=== PATIENT | female | born 1965 | race Caucasian/White ===

== ENCOUNTER 2018-01-26 15:18 | Inpatient (IN) | payer OTHER ==
[~2018-01-26] VITALS: Ht 157.5 cm; Wt 74.1 kg
[~2018-01-26 15:18] MED LIST: ALBU90OI INH; BUPR100 PO; MYCO250 PO; Multivitamin1 EAC1 PO; OMEPRAZOLE MAGN20 MG PO; PRED10 PO; Sulfamethoxazo1 EAC4; Sulfamethoxazo1 EAC4 PO
[2018-01-26 17:01] LABS: BASOPHILS ABSOLUTE AUTO 0.04 K/mm3 (0.00-0.23); BASOPHILS PERCENT AUTO 0 % (0-2); EOSINOPHILS ABSOLUTE AUTO 0.05 K/mm3 (0.00-0.68); EOSINOPHILS PERCENT AUTO 1 % (0-6); Hematocrit 37.3 % (33.0-51.0); Hemoglobin 11.9 g/dL (11.5-16.0); IMMATURE GRAN ABSOLUTE AUTO 0.06 K/mm3 (0.00-0.10); IMMATURE GRAN PERCENT AUTO 1 % (0-1); LYMPHOCYTES ABSOLUTE AUTO 0.54 K/mm3 (0.84-5.20); LYMPHOCYTES PERCENT AUTO 5 % (21-46); MONOCYTES ABSOLUTE AUTO 0.47 K/mm3 (0.16-1.47); MONOCYTES PERCENT AUTO 5 % (4-13); Mean Corpuscular HGB Conc 31.9 g/dL (31.5-36.5); Mean Corpuscular Volume 94 fL (80-100); Mean Platelet Volume 9.7 fL (9.1-12.4); NEUTROPHILS ABSOLUTE AUTO 9.25 K/mm3 (1.96-9.15); NEUTROPHILS PERCENT AUTO 89 % (41-73); Platelet Count 356 K/mm3 (150-400); RDW Coefficient Variation 13.1 % (11.7-14.2); RDW Standard Deviation 44.5 fL (35.1-46.3); Red Blood Cell Count 3.97 M/mm3 (3.80-5.20); White Blood Cell Count 10.41 K/mm3 (4.00-11.30)
[2018-01-26 17:33] LABS: Alanine Aminotransfer (ALT/SGP 20 U/L (12-78); Albumin, Blood 3.2 g/dL (3.4-5.0); Albumin/Globulin Ratio 0.8 (0.8-1.8); Alk Phos 65 U/L (50-136); Anion Gap 7 mmol/L (6-16); Aspartate Aminotrans (AST/SGOT 15 U/L (12-37); Bilirubin, Total 0.2 mg/dL (0.1-1.0); Blood Urea Nitrogen 4 mg/dL (8-24); Bun/Creatinine Ratio 8.7 (12.0-20.0); CO2, Blood 28 mmol/L (21-32); Calcium, Blood 8.8 mg/dL (8.5-10.1); Chloride, Blood 97 mmol/L (98-108); Creatinine, Blood 0.46 mg/dL (0.40-1.00); Globulin, Blood 4.1 g/dL (2.2-4.0); Glomerular Filtration Rate >60 (60-); Glucose, Blood 109 mg/dL (70-99); Potassium, Blood 4.2 mmol/L (3.5-5.5); Sodium, Blood 132 mmol/L (136-145); Total Protein, Blood 7.3 g/dL (6.4-8.2); Troponin I <0.015 ng/mL (0.000-0.040)
[2018-01-27 04:28] LABS: Anion Gap 7 mmol/L (6-16); Blood Urea Nitrogen 6 mg/dL (8-24); Bun/Creatinine Ratio 12.4 (12.0-20.0); CO2, Blood 29 mmol/L (21-32); Calcium, Blood 8.5 mg/dL (8.5-10.1); Chloride, Blood 98 mmol/L (98-108); Creatinine, Blood 0.48 mg/dL (0.40-1.00); Glomerular Filtration Rate >60 (60-); Glucose, Blood 161 mg/dL (70-99); Potassium, Blood 4.3 mmol/L (3.5-5.5); Sodium, Blood 134 mmol/L (136-145)
[2018-01-28 05:28] LABS: BASOPHILS ABSOLUTE AUTO 0.01 K/mm3 (0.00-0.23); BASOPHILS PERCENT AUTO 0 % (0-2); EOSINOPHILS PERCENT AUTO 0 % (0-6); Hematocrit 35.9 % (33.0-51.0); Hemoglobin 11.3 g/dL (11.5-16.0); IMMATURE GRAN ABSOLUTE AUTO 0.09 K/mm3 (0.00-0.10); IMMATURE GRAN PERCENT AUTO 1 % (0-1); LYMPHOCYTES ABSOLUTE AUTO 0.66 K/mm3 (0.84-5.20); LYMPHOCYTES PERCENT AUTO 7 % (21-46); MONOCYTES ABSOLUTE AUTO 0.31 K/mm3 (0.16-1.47); MONOCYTES PERCENT AUTO 3 % (4-13); Mean Corpuscular HGB 29.8 pg (26.0-34.0); Mean Corpuscular HGB Conc 31.5 g/dL (31.5-36.5); Mean Corpuscular Volume 95 fL (80-100); Mean Platelet Volume 9.7 fL (9.1-12.4); NEUTROPHILS ABSOLUTE AUTO 8.53 K/mm3 (1.96-9.15); NEUTROPHILS PERCENT AUTO 89 % (41-73); Platelet Count 360 K/mm3 (150-400); RDW Standard Deviation 45.1 fL (35.1-46.3); Red Blood Cell Count 3.79 M/mm3 (3.80-5.20)
[2018-01-28 06:05] LABS: Alanine Aminotransfer (ALT/SGP 14 U/L (12-78); Albumin, Blood 2.9 g/dL (3.4-5.0); Albumin/Globulin Ratio 0.8 (0.8-1.8); Alk Phos 53 U/L (50-136); Anion Gap 8 mmol/L (6-16); Aspartate Aminotrans (AST/SGOT 12 U/L (12-37); Bilirubin, Total 0.3 mg/dL (0.1-1.0); Blood Urea Nitrogen 9 mg/dL (8-24); Bun/Creatinine Ratio 19.4 (12.0-20.0); CO2, Blood 30 mmol/L (21-32); Calcium, Blood 8.6 mg/dL (8.5-10.1); Chloride, Blood 99 mmol/L (98-108); Creatinine, Blood 0.46 mg/dL (0.40-1.00); Globulin, Blood 3.8 g/dL (2.2-4.0); Glomerular Filtration Rate >60 (60-); Glucose, Blood 129 mg/dL (70-99); Potassium, Blood 3.8 mmol/L (3.5-5.5); Sodium, Blood 137 mmol/L (136-145); Total Protein, Blood 6.7 g/dL (6.4-8.2)
[2018-01-31 03:59] LABS: BASOPHILS ABSOLUTE AUTO 0.02 K/mm3 (0.00-0.23); BASOPHILS PERCENT AUTO 0 % (0-2); EOSINOPHILS ABSOLUTE AUTO 0.07 K/mm3 (0.00-0.68); EOSINOPHILS PERCENT AUTO 1 % (0-6); Hemoglobin 12.3 g/dL (11.5-16.0); IMMATURE GRAN ABSOLUTE AUTO 0.16 K/mm3 (0.00-0.10); IMMATURE GRAN PERCENT AUTO 2 % (0-1); LYMPHOCYTES ABSOLUTE AUTO 1.04 K/mm3 (0.84-5.20); LYMPHOCYTES PERCENT AUTO 10 % (21-46); MONOCYTES ABSOLUTE AUTO 0.67 K/mm3 (0.16-1.47); MONOCYTES PERCENT AUTO 7 % (4-13); Mean Corpuscular HGB 30.1 pg (26.0-34.0); Mean Corpuscular HGB Conc 32.4 g/dL (31.5-36.5); Mean Corpuscular Volume 93 fL (80-100); Mean Platelet Volume 9.6 fL (9.1-12.4); NEUTROPHILS ABSOLUTE AUTO 8.16 K/mm3 (1.96-9.15); NEUTROPHILS PERCENT AUTO 81 % (41-73); Platelet Count 341 K/mm3 (150-400); RDW Coefficient Variation 13.2 % (11.7-14.2); RDW Standard Deviation 45.5 fL (35.1-46.3); Red Blood Cell Count 4.08 M/mm3 (3.80-5.20); White Blood Cell Count 10.12 K/mm3 (4.00-11.30)
[2018-01-31 04:22] LABS: Anion Gap 8 mmol/L (6-16); Blood Urea Nitrogen 11 mg/dL (8-24); Bun/Creatinine Ratio 24.3 (12.0-20.0); CO2, Blood 29 mmol/L (21-32); Calcium, Blood 8.5 mg/dL (8.5-10.1); Chloride, Blood 100 mmol/L (98-108); Creatinine, Blood 0.45 mg/dL (0.40-1.00); Glomerular Filtration Rate >60 (60-); Glucose, Blood 130 mg/dL (70-99); Potassium, Blood 4.3 mmol/L (3.5-5.5); Sodium, Blood 137 mmol/L (136-145)
[2018-02-01 04:02] LABS: BASOPHILS ABSOLUTE AUTO 0.02 K/mm3 (0.00-0.23); BASOPHILS PERCENT AUTO 0 % (0-2); EOSINOPHILS ABSOLUTE AUTO 0.11 K/mm3 (0.00-0.68); EOSINOPHILS PERCENT AUTO 1 % (0-6); Hematocrit 38.9 % (33.0-51.0); Hemoglobin 12.4 g/dL (11.5-16.0); IMMATURE GRAN ABSOLUTE AUTO 0.35 K/mm3 (0.00-0.10); IMMATURE GRAN PERCENT AUTO 3 % (0-1); LYMPHOCYTES ABSOLUTE AUTO 2.18 K/mm3 (0.84-5.20); LYMPHOCYTES PERCENT AUTO 16 % (21-46); MONOCYTES ABSOLUTE AUTO 1.28 K/mm3 (0.16-1.47); MONOCYTES PERCENT AUTO 9 % (4-13); Mean Corpuscular HGB 29.4 pg (26.0-34.0); Mean Corpuscular HGB Conc 31.9 g/dL (31.5-36.5); Mean Corpuscular Volume 92 fL (80-100); NEUTROPHILS ABSOLUTE AUTO 9.74 K/mm3 (1.96-9.15); NEUTROPHILS PERCENT AUTO 71 % (41-73); Platelet Count 374 K/mm3 (150-400); RDW Coefficient Variation 13.2 % (11.7-14.2); RDW Standard Deviation 44.2 fL (35.1-46.3); Red Blood Cell Count 4.22 M/mm3 (3.80-5.20); White Blood Cell Count 13.68 K/mm3 (4.00-11.30)
[2018-02-02 04:05] LABS: BASOPHILS ABSOLUTE AUTO 0.04 K/mm3 (0.00-0.23); BASOPHILS PERCENT AUTO 0 % (0-2); EOSINOPHILS ABSOLUTE AUTO 0.86 K/mm3 (0.00-0.68); EOSINOPHILS PERCENT AUTO 6 % (0-6); Hematocrit 38.5 % (33.0-51.0); Hemoglobin 12.4 g/dL (11.5-16.0); IMMATURE GRAN ABSOLUTE AUTO 0.47 K/mm3 (0.00-0.10); IMMATURE GRAN PERCENT AUTO 3 % (0-1); LYMPHOCYTES ABSOLUTE AUTO 2.85 K/mm3 (0.84-5.20); LYMPHOCYTES PERCENT AUTO 19 % (21-46); MONOCYTES ABSOLUTE AUTO 1.37 K/mm3 (0.16-1.47); MONOCYTES PERCENT AUTO 9 % (4-13); Mean Corpuscular HGB 29.9 pg (26.0-34.0); Mean Corpuscular HGB Conc 32.2 g/dL (31.5-36.5); Mean Corpuscular Volume 93 fL (80-100); Mean Platelet Volume 9.6 fL (9.1-12.4); NEUTROPHILS ABSOLUTE AUTO 9.13 K/mm3 (1.96-9.15); NEUTROPHILS PERCENT AUTO 62 % (41-73); Platelet Count 339 K/mm3 (150-400); RDW Coefficient Variation 13.4 % (11.7-14.2); RDW Standard Deviation 45.5 fL (35.1-46.3); Red Blood Cell Count 4.15 M/mm3 (3.80-5.20); White Blood Cell Count 14.72 K/mm3 (4.00-11.30)
[2018-02-02] MEDS ORDERED: DELTASONE20 MG PO (10:39)
== END 2018-02-02 11:21 | disposition home or self-care (01) | DRG 196 ==
LOC: ER 15:18 → ERHOLD 19:31 → PCU 19:31
PROVIDERS: Hospitalist; Internal Medicine; Physician Assistant; Student in an Organized Health Care Education/Training Program
DX: J84.112 Idiopathic pulmonary fibrosis (principal); J96.01 Acute respiratory failure with hypoxia; E87.1 Hypo-osmolality and hyponatremia; K21.9 Gastro-esophageal reflux disease without esophagitis; R91.1 Solitary pulmonary nodule; Z99.81 Dependence on supplemental oxygen; Z87.891 Personal history of nicotine dependence
CPT/HCPCS: 36415; 71045; 80048; 80053; 84145; 84484; 85025; 93005; 93010; 94640; 94760; 94762; 96374; 97110; 97116; 97162; 97530; 99285-25; G8978; G8979; J1650; J1956; J2920; J2930; J7050; J7120; J7517

== ENCOUNTER 2018-02-22 13:19 | Emergency (ER) | payer OTHER ==
[~2018-02-22] VITALS: Ht 157.5 cm; Wt 70.3 kg
[~2018-02-22 13:19] MED LIST changes: +DELTASONE20 MG PO
[2018-02-22 13:58] LABS: PCO2 Arterial 42.9 mmHg (35-45); PO2 Arterial 88.3 mmHg (80-100); pH Blood Arterial 7.45 (7.35-7.45)
[2018-02-22 14:11] LABS: BASOPHILS ABSOLUTE AUTO 0.04 K/mm3 (0.00-0.23); BASOPHILS PERCENT AUTO 0 % (0-2); EOSINOPHILS ABSOLUTE AUTO 0.16 K/mm3 (0.00-0.68); EOSINOPHILS PERCENT AUTO 1 % (0-6); Hematocrit 40.4 % (33.0-51.0); Hemoglobin 12.6 g/dL (11.5-16.0); IMMATURE GRAN ABSOLUTE AUTO 0.15 K/mm3 (0.00-0.10); IMMATURE GRAN PERCENT AUTO 1 % (0-1); LYMPHOCYTES ABSOLUTE AUTO 0.61 K/mm3 (0.84-5.20); LYMPHOCYTES PERCENT AUTO 5 % (21-46); MONOCYTES ABSOLUTE AUTO 0.49 K/mm3 (0.16-1.47); MONOCYTES PERCENT AUTO 4 % (4-13); Mean Corpuscular HGB 29.8 pg (26.0-34.0); Mean Corpuscular HGB Conc 31.2 g/dL (31.5-36.5); Mean Corpuscular Volume 96 fL (80-100); NEUTROPHILS ABSOLUTE AUTO 11.96 K/mm3 (1.96-9.15); NEUTROPHILS PERCENT AUTO 89 % (41-73); Platelet Count 390 K/mm3 (150-400); RDW Coefficient Variation 14.2 % (11.7-14.2); RDW Standard Deviation 49.6 fL (35.1-46.3); Red Blood Cell Count 4.23 M/mm3 (3.80-5.20); White Blood Cell Count 13.41 K/mm3 (4.00-11.30)
[2018-02-22 14:31] LABS: Alanine Aminotransfer (ALT/SGP 20 U/L (12-78); Albumin, Blood 3.1 g/dL (3.4-5.0); Albumin/Globulin Ratio 0.8 (0.8-1.8); Alk Phos 64 U/L (50-136); Anion Gap 9 mmol/L (6-16); Aspartate Aminotrans (AST/SGOT 13 U/L (12-37); Bilirubin, Total 0.5 mg/dL (0.1-1.0); Blood Urea Nitrogen 6 mg/dL (8-24); Bun/Creatinine Ratio 11.9 (12.0-20.0); CO2, Blood 28 mmol/L (21-32); Calcium, Blood 8.6 mg/dL (8.5-10.1); Chloride, Blood 96 mmol/L (98-108); Creatinine, Blood 0.51 mg/dL (0.40-1.00); Glomerular Filtration Rate >60 (60-); Glucose, Blood 107 mg/dL (70-99); Potassium, Blood 3.8 mmol/L (3.5-5.5); Sodium, Blood 133 mmol/L (136-145); Total Protein, Blood 7.1 g/dL (6.4-8.2); Troponin I <0.015 ng/mL (0.000-0.040)
== END 2018-02-22 15:35 | disposition home or self-care (01) ==
LOC: ER 13:19
PROVIDERS: Physician Assistant
DX: R07.89 Other chest pain (principal); J84.112 Idiopathic pulmonary fibrosis; Z79.52 Long term (current) use of systemic steroids; Z79.899 Other long term (current) drug therapy; K21.9 Gastro-esophageal reflux disease without esophagitis; Z87.891 Personal history of nicotine dependence
CPT/HCPCS: 36415; 36600; 71045; 80053; 82803; 84484; 85025; 93005; 93010; 99284-25

== ENCOUNTER 2018-02-26 12:42 | Inpatient (IN) | payer OTHER ==
[~2018-02-26] VITALS: Ht 157.5 cm; Wt 65.5 kg
[2018-02-26 13:23] LABS: BASOPHILS ABSOLUTE AUTO 0.03 K/mm3 (0.00-0.23); BASOPHILS PERCENT AUTO 0 % (0-2); EOSINOPHILS ABSOLUTE AUTO 0.24 K/mm3 (0.00-0.68); EOSINOPHILS PERCENT AUTO 2 % (0-6); Hematocrit 40.7 % (33.0-51.0); Hemoglobin 12.7 g/dL (11.5-16.0); IMMATURE GRAN ABSOLUTE AUTO 0.16 K/mm3 (0.00-0.10); IMMATURE GRAN PERCENT AUTO 1 % (0-1); LYMPHOCYTES ABSOLUTE AUTO 0.83 K/mm3 (0.84-5.20); LYMPHOCYTES PERCENT AUTO 6 % (21-46); MONOCYTES ABSOLUTE AUTO 0.47 K/mm3 (0.16-1.47); MONOCYTES PERCENT AUTO 3 % (4-13); Mean Corpuscular HGB 29.6 pg (26.0-34.0); Mean Corpuscular HGB Conc 31.2 g/dL (31.5-36.5); Mean Corpuscular Volume 95 fL (80-100); Mean Platelet Volume 9.3 fL (9.1-12.4); NEUTROPHILS ABSOLUTE AUTO 12.01 K/mm3 (1.96-9.15); NEUTROPHILS PERCENT AUTO 88 % (41-73); Platelet Count 467 K/mm3 (150-400); RDW Coefficient Variation 14.3 % (11.7-14.2); RDW Standard Deviation 49.3 fL (35.1-46.3); Red Blood Cell Count 4.29 M/mm3 (3.80-5.20); White Blood Cell Count 13.74 K/mm3 (4.00-11.30)
[2018-02-26 13:34] LABS: Base Excess Venous 5.1 mmol/L; Bicarbonate Venous 28.3 mmol/L (24.0-30.0); PCO2 Venous 43.3 mmHg (38-42); pH Blood Venous 7.44 (7.34-7.37)
[2018-02-26 13:41] LABS: Troponin I 0.082 ng/mL (0.000-0.040)
[2018-02-26 13:53] LABS: Alanine Aminotransfer (ALT/SGP 16 U/L (12-78); Albumin, Blood 3.1 g/dL (3.4-5.0); Albumin/Globulin Ratio 0.8 (0.8-1.8); Alk Phos 73 U/L (50-136); Anion Gap 7 mmol/L (6-16); Aspartate Aminotrans (AST/SGOT 16 U/L (12-37); Bilirubin, Total 0.5 mg/dL (0.1-1.0); Blood Urea Nitrogen 6 mg/dL (8-24); Bun/Creatinine Ratio 10.5 (12.0-20.0); CO2, Blood 28 mmol/L (21-32); Calcium, Blood 8.7 mg/dL (8.5-10.1); Chloride, Blood 101 mmol/L (98-108); Creatinine, Blood 0.57 mg/dL (0.40-1.00); Globulin, Blood 4.1 g/dL (2.2-4.0); Glomerular Filtration Rate >60 (60-); Glucose, Blood 116 mg/dL (70-99); Sodium, Blood 136 mmol/L (136-145); Total Protein, Blood 7.2 g/dL (6.4-8.2)
[2018-02-26 17:03] LABS: Bilirubin, Urine Neg (Neg); Blood, Urine Neg (Neg); Glucose Qualitative, Urine Neg (Neg); Ketones, Urine 2+ (Neg); Leukocyte Esterase, Urine Neg (Neg); Nitrite, Urine Neg (Neg); Protein, Urine Neg (Neg); Specific Gravity, Urine 1.015 (1.003-1.022); Urobilinogen, Urine NORM (Normal)
[2018-02-26 17:21] LABS: Appearance, Urine Clear (Clear); Color, Urine Yellow (P-Yellow)
--- NOTE | 2018-02-26 18:28 | NUR ---
ADMISSION / SHIFT SUMMARY: REPORT RECEIVED FROM AZEEM Cid RN IN ED. PT ARRIVED TO ICU-14 AT APPROX 1550. THE PT IS ON BIPAP, 11/14, BU RATE 14 & 50% FiO2. SHE IS TOLERATING THIS WELL ON ARRIVAL W/ O2 SATS > 90%. ASSESSMENT CHARTED, ADMISSION IS COMPLETE. MEDS REC'd BASED ON PT's RECENT ADMIT & PHARMACY LIST. BLOOD CONSENT & INFO RELEASE COMPLETE. PT HAS CONTINUED TO DO WELL ON BIPAP, SHE DOES HAVE ONE EPISODE OF DESATS NOTED TO 84% AFTER ROLLING TO USE BEDPAN. RECOVERED AFTER A FEW MINUTES W/ FiO2 INCREASED TO 70%, GRADUALLY TITRATED BACK TO 50%. SHE IS DECONDITIONED & STS THAT ANY ACTIVITY CAUSES HER TO DESAT "THESE DAYS." SHE ALSO EXPERIENCES SOME URGENCY INCONTINENCE W/ SOB SHE CANNOT GET TO BATHROOM QUICKLY AT HOME. THE PT HAS BLISTERS TO HER COCCYX THAT APPEAR TO BE FROM ADHESIVE. SHE STS THE BLISTERS OCCURED SHORTLY AFTER HER ADMIT APPROX 2 WKS AGO & THAT A MEPILEX HAD BEEN APPLIED TO THE AREA DURING THAT TIME. PHOTOS HAVE BEEN TAKEN & PLACED INTO CHART FOR REFERENCE. AT THIS TIME, THE PT IS SITTING UP IN BED, VISITING W/ FAMILY MEMBERS & EATING DINNER. SHE HAS BEEN PLACED ON AIRVO PER DR. CALABRESE, CURRENTLY AT 44 L/MIN & 64% FiO2. SHE IS TOLERATING THIS WELL W/ O2 SATS > 95%. WILL CONTINUE TO MONITOR & REPORT OFF TO ONCOMING RN.
--- NOTE | 2018-02-26 19:25 | NUR ---
ASSESSMENT ASSUMED CARE OF PT. PT AWAKE SITTING UP IN BED ON THE BED TERAN. BIPAP ON. DAUGHTER AT BEDSIDE. PT SOB WITH ANY ACTIVITY. BIPAP 11/14 RATE 14 FIO2 INCREASED FROM 50% TO 65% BY DAY SHIFT RN WHEN PT PLACED ON BIPAP TO USE BED TERAN. LUNGS WITH FINE CRACKLES TO RIGHT UPPER LOBE AND EXP WHEEZES. RESP RATE IN THE 40'S. DENIES COUGH. HEART RATE TACHY 100-110'S. BP STABLE. BT+ ABD SOFT AND NONTENDER. DENIES N/V. ASSISTED WITH NIDA CARE AND LINEN CHANGE DUE TO MISSING THE BED TERAN. FIO2 INCREASED TO 70% WITH TURNING PER PT REQUEST. RT AT BEDSIDE. AFTER PT RESTED AND RECOVERED. FIO2 DECREASED BACK DOWN TO 60%. WITH SPO2 AT 98%. PT REPOSITIONED IN BED. IV 20G TO LEFT HAND AND 18G TO RIGHT AC SALINE LOCKED, SITES CLEAR AND FLUSHED WITHOUT DIFFICULTY. PT TALKATIVE WITH DAUGHTER AND STAFF. PT ASKED ABOUT IV FLUID STATES,"I HAVE NOT BEEN DRINKING MUCH AT HOME AND THINK I AM DEHYDRATED. I THINK I SHOULD HAVE IV FLUID". EXPLAINED THAT BNP IS ELEVATED AND THAT WE DO NOT WANT TO FLUID OVERLOAD HER DUE TO RESP ISSUE. PT EXPRESSED UNDERSTANDING
--- NOTE | 2018-02-26 21:16 | NUR ---
HS MEDS PT PLACED ON AIRVO TO GIVE HS MEDS. PT TAKING PO FLUID AND MEDS WITHOUT DIFFICULTY. PLACED BACK ON BIPA DUE TO SPO2 DOWN TO 83%. PT RECOVERED AFTER BEING ON THE BIPAP LESS THAN 5 MIN TO SPO2 OF 92%. PT SITTING UP IN BED TALKING WITH DAUGHTER.
--- NOTE | 2018-02-26 21:59 | NUR ---
DAUGHTER WENT HOME FOR NIGHT. PT RESTING QUIETLY WITH BIPAP ON
--- NOTE | 2018-02-26 23:35 | NUR ---
REASSESSMENT PT SLEEPING WITH BIPAP ON. AWAKENS EASILY TO TOUCH. DENIES PAIN. VSS. LUNGS CONT WITH FINE CRACKLES TO THE RIGHT UPPER LOBE AND WHEEZES THROUGHOUT. PT TOLERATING BIPAP. PULLING TV IN THE 500'S. RESP RATE DOWN TO THE MID 20'S. SPO2 96%. PT MOVING SELF IN BED. BACK TO SLEEP QUICKLY
--- NOTE | 2018-02-27 04:25 | NUR ---
REASSESSMENT PT SLEEPING WITH BIPAP ON. AWAKENS EASILY. DENIES PAIN. LUNGS WITH EXT WHEEZES NOT CRACKLES NOTED. TV 500'S. RESP RATE 23. SPO2 95%. VSS. PT BACK TO SLEEP QUICKLY.
--- NOTE | 2018-02-27 06:16 | NUR ---
SHIFT SUMMARY PT SLEPT MOST OF THE NIGHT, AWAKENS EASILY. MOVING SELF IN BED. BIPAP ON. BIPAP SETTINGS 11/14 RATE 14 FIO2 50%. FIO2 INCREASED TO 60% WHEN PT PLACED ON BEDPAN DUE TO INCREASED SOB AND WORK OF BREATHING. FIO2 BACK DOWN TO 50 % AFTER PT REST AND SOB RESOLVES. LUNGS WITH WHEEZING THROUGHOUT AND FINE CRACKLES TO RIGHT UPPER LOBE. HEART RATE REGULAR. BP STABLE. PT STATES,"I'M FEELING A LOT BETTER WITH THE BIPAP". SHORT BREAKS FROM THE BIPAP FOR ORAL CARE AND DRINKS. PT THAN PLACED ON THE AIRVO. REPORT TO ON COMING NURSE
--- NOTE | 2018-02-27 07:34 | NUR ---
START OF SHIFT NOTE: PATIENT IS AWAKE, A+Ox4, DENIES PAIN, REPORTS NO CHEST PAIN/DISCOMFORT, LS DIMINISHED THROUGHOUT, NO WHEEZES NOTED, BIPAP ON PATIENT, RT IN TO GIVE BREATHING TREATMENT, VSS, SBP SLIGHTLY LOW, AFEBRILE, BIPAP SETTINGS ARE 10//14/FiO2 50 %, PATIENT IS PLEASANT AND TALKING, CALL LIGHT IN REACH, WILL CONTINUE TO MONITOR.
--- NOTE | 2018-02-27 08:02 | NUR ---
PATIENT PLACED ON AIRVO WITH FiO2 40 % FOR BREAKFAST, O2 SATS AT 98 %, PATIENT EATING WITH GOOD APPETITE, CALL LIGHT IN REACH, WILL CONTINUE TO MONITOR.
--- NOTE | 2018-02-27 10:03 | NUR ---
PATIENT RECEIVEING BED BATH, FiO2 ON BIPAP INCREASED FROM 50 % TO 80 %, WILL CONTINUE TO MONITOR.
--- NOTE | 2018-02-27 10:50 | NUR ---
DR. MCFARLANE CALLED AND INQUIRED ABOUT PATIENT STATUS AND IF DR. CALABRESE HAD SEEN THE PATIENT, ALSO NOTIFIED THIS RN ABOUT A NEW LASIX ORDER, DR. CALABRESE NOTIFIED AND WILL SEE PATIENT.
--- NOTE | 2018-02-27 11:20 | NUR ---
VISITOR AT BEDSIDE, PATIENT NEEDED ASSISTANCE WITH BLOWING NOSE AND RE-ADJUSTING BIPAP MASK, REPORTS NO PAIN OR DISCOMFORTS, ABLE TO MAKE NEEDS KNOWN, CALL LIGHT IN REACH, WILL CONTINUE TO MONITOR.
--- NOTE | 2018-02-27 11:58 | NUR ---
DR. CALABRESE IN TO SEE PATIENT AT BEDSIDE, SPOKE WITH PATIENT AND SON, FiO2 ON BIPAP INCREASED TO 80 %, D/T PATIENT ROLLING FOR BEDPAN AND TALKING WITH DR. CALABRESE, CALL LIGHT IN REACH, WILL CONTINUE TO MONITOR.
--- NOTE | 2018-02-27 12:07 | NUR ---
ECHO ORDERED BY DR. CALABRESE, CAREER TECHNOLOGY TEACHER NOTIFIED BY MCKENZIE HAMILTON, CHARGE NURSE.
--- NOTE | 2018-02-27 12:44 | NUR ---
FERRIS WHEEL OPERATOR AT BEDSIDE TO TO ORDERED ECHO, PATIENT PLACED BACK ON BIPAP FROM AIRVO WHILE EATING, BIPAP AT FiO2 80% D/T PATIENT HAVING TO LIE FLAT, CALL LIGHT IN REACH, WILL CONTINUE TO MONITOR.
--- NOTE | 2018-02-27 13:19 | NUR ---
ECHOCARDIOGRAM COMPLETE
--- NOTE | 2018-02-27 15:27 | NUR ---
PATIENT WAS MOVED FROM ROOM 14 TO ROOM 8, DR. CALABRESE AWARE, PATIENT TOLERATED WELL, ORIENTED TO NEW ROOM AND ENVIRONMENT, PATIENT'S SON AT BEDSIDE, CALL LIGHT IN REACH, WILL CONTINUE TO MONITOR.
--- NOTE | 2018-02-27 17:53 | NUR ---
SHIFT SUMMARY NOTE: PATIENT IS PLEASANT AND COOPERATIVE, A+Ox4, DENIES PAIN, REPORTS NO CHEST PAIN/DISCOMFORT, CONTINUES TO BE ON BIPAP, SETTINGS 11/14//FiO2 70 %, AND FOR BREAKFAST, LUNCH, AND DINNER SWITCHES TO AIRVO AT 45 %, TOLERATING WELL, O2 SATS IN MID 90S, RECEIVED 0.5 MG TABLET OF ATIVAN TO HELP WITH ANXIETY, PATIENT REPORTED THAT SHE FELT NO DIFFERENCE AFTER 1.5 HOURS, VISITORS AT BEDSIDE, PATIENT'S VSS, AFEBRILE, NSR/ST AT TIMES, USES BEDPAN TO VOID, ABLE TO ROLL AND REPOSITION SELF, FOR DETAILED INFORMATION SEE SHIFT ASSESSMENT DOCUMENTATION, CALL LIGHT IN REACH, WILL CONTINUE TO MONITOR AND GIVE REPORT TO ONCOMING SHIPPING CHECKER.
--- NOTE | 2018-02-27 19:21 | NUR ---
[place] of Care: Patient alert and oriented x4, sitting upright in bed watching tv, visiting with family. Denies pain, discomfort, SOB, or dyspnea at this time. Does become slightly SOB with extended conversation or activity, quickly recovers. Currently on Airvo with 74% FiO2, O2- 88-92%, tolerating without difficulty. Plan to place patient on BiPAP mask when she is ready to go to sleep. Peripheral IV's to BUE patent and intact. Day shift RN, reports patient uses bed-sanchez to void. Spoke with Dr. Ignacio at this time r/t lack of lab orders for the morning, no new orders received. Call light in reach, makes needs known. Will continue to monitor for pain, comfort, safety.
--- NOTE | 2018-02-28 05:37 | NUR ---
Shift Summary: Patient slept well throughout shift. Continue to deny pain or discomfort. Only complains of SOB with exertion, quickly recovers with rest. On BiPAP mask when sleeping, 10/5/ 45-50% FiO2, O2-88-94%. Continues on Airvo NC 74% FiO2 when awake. Voiding using bedpan without difficulty. X2 new peripheral IV's placed early this shift, previous x2 peripheral IVs D/C'd per patient's request (painful). Both new IV's remain patent and intact. Patient now sitting upright in bed watching tv. Uses call light for assistance, makes needs known. Will continue to monitor until report to day shift RN.
--- NOTE | 2018-02-28 07:30 | NUR ---
START OF SHIFT NOTE: RECEIVED REPORT FROM MIKEY WELCH, ASSUMED CARE, PATIENT IS AWAKE AND WATCHING TV, ALERT AND ORIENTED x4, DENIES PAIN, REPORTS NO CHEST PAIN/DISCOMFORT, PATIENT ON AIRVO AT 40L SATING AT 98 %, VSS, AFEBRILE, APPEARS LESS ANXIOUS, ASKING FOR STOOL SOFTENERS, GOOD BOWEL TONES IN ALL FOUR QUADRANTS, BILATERAL FA PIVs, CALL LIGHT IN REACH, WILL CONTINUE TO MONITOR.
--- NOTE | 2018-02-28 08:33 | NUR ---
PATIENT REQUESTED TO CHANGE FROM AIRVO TO BIPAP IN ORDER TO REST AND TAKE A NAP, BIPAP SETTINGS AT 11/14/13/FiO2 50 %, AIRVO SETTINGS ARE 40L, PATIENT HAS GOOD APPETITE AND ATE ALL OF BREAKFAST, CALL LIGHT IN REACH, WILL CONTINUE TO MONITOR.
--- NOTE | 2018-02-28 11:46 | NUR ---
Spoke with Dr. Ignacio yesterday and today. met with pt today. Dr. Ignacio attemtpted to get pt to [place]. They will not accept at hospital at this time. pt has her internship coordinator information with her. Made contact with team and left voice mail. At this time Dr. Ignacio has a goal of getting her to a long-term facility in [place] so she is near the hospital and they can manage her care and improve her chances of staying on protocol for transplant. Pt is amendable to the plan and consented for me to contact he coordinator. Sent copies of current notes to the team. pre transplant team at [facility]. Phone number [phone] fax [phone]. [facility] staff notified of plan will get ss consult.
--- NOTE | 2018-02-28 16:39 | NUR ---
PATIENT INSPECTOR TOOL LIGHT, FiO2 ON BIPAPA AT 50 % AND PATIENT'S O2 SATS AT 86, PATIENT STATED "i HAVE BEEN TRYING TO GET MY O2 UP AND CAN'T SEEM TO GET IT", FiO2 INCREASED TO 70 %, PATIENT O2 UP TO 93 %, PATIENT OBSERVED TO BE BREATHING EASIER AND AT A SLOWER RATE, WILL CONTINUE TO MONITOR.
--- NOTE | 2018-02-28 17:42 | NUR ---
SHIFT SUMMARY NOTE: PATIENT CONTINUES TO SWITCH BETWEEN BIPAP AND OCCASIONAL AIRVO USE WHILE EATING, BIPAP SETTINGS AT THIS TIME ARE 11/14/13/FiO2 70 %, AIRVO AT 45 L/MIN, PATIENT IS ALERT AND ORIENTED, DENIES PAIN, MAY HAVE ATIVAN FOR OCCASIONAL ANXIETY AND ASSOCIATED HIGH RESPIRATORY RATE, USES CALL LIGHT TO MAKE NEEDS KNOWN, USES BEDPAN TO VOID, EATS 100 % OF ALL HER MEALS, SKIN INTACT AND C/D/I, LUNGS SOUND DIMINISHED AND FINE CRACKLES NOTED, NSR, HR IN 90s TO 110s, BLOOD PRESSURES ARE POSITIONAL AND LOWER WHEN PATIENT LYING FLATTER, HAS NOT HAD BM, STOOL SOFTENERS AVAILABLE AND GIVEN, CALL LIGHT IN REACH, WILL CONTINUE TO MONITOR AND GIVE REPORT TO ONCOMING NOC SHIFT.
--- NOTE | 2018-02-28 19:15 | NUR ---
[place] of Care: Patient alert and oriented x4, sitting upright in bed watching tv. Denies pain, or discomfort. Denies dyspnea/SOB at rest, but quickly becomes SOB with exertion. VSS, currently on BiPAP 10/5/50%, O2- 89-91%. Plan to keep patient on BiPAP mask when she is ready to sleep for the night, will otherwise use Airvo NC. Peripheral IV's x2 patent and intact. Call light in reach, makes needs known. Will continue to monitor for pain, comfort, safety.
[2018-03-01 03:46] LABS: BASOPHILS ABSOLUTE AUTO 0.03 K/mm3 (0.00-0.23); BASOPHILS PERCENT AUTO 0 % (0-2); EOSINOPHILS PERCENT AUTO 0 % (0-6); Hematocrit 38.3 % (33.0-51.0); Hemoglobin 11.6 g/dL (11.5-16.0); IMMATURE GRAN ABSOLUTE AUTO 0.27 K/mm3 (0.00-0.10); IMMATURE GRAN PERCENT AUTO 2 % (0-1); LYMPHOCYTES ABSOLUTE AUTO 1.03 K/mm3 (0.84-5.20); LYMPHOCYTES PERCENT AUTO 7 % (21-46); MONOCYTES ABSOLUTE AUTO 0.41 K/mm3 (0.16-1.47); MONOCYTES PERCENT AUTO 3 % (4-13); Mean Corpuscular HGB 29.1 pg (26.0-34.0); Mean Corpuscular HGB Conc 30.3 g/dL (31.5-36.5); Mean Corpuscular Volume 96 fL (80-100); Mean Platelet Volume 9.5 fL (9.1-12.4); NEUTROPHILS ABSOLUTE AUTO 12.43 K/mm3 (1.96-9.15); NEUTROPHILS PERCENT AUTO 88 % (41-73); Platelet Count 432 K/mm3 (150-400); RDW Coefficient Variation 14.1 % (11.7-14.2); RDW Standard Deviation 49.6 fL (35.1-46.3); Red Blood Cell Count 3.99 M/mm3 (3.80-5.20); White Blood Cell Count 14.17 K/mm3 (4.00-11.30)
[2018-03-01 04:03] LABS: Albumin, Blood 2.8 g/dL (3.4-5.0); Anion Gap 7 mmol/L (6-16); Blood Urea Nitrogen 17 mg/dL (8-24); Bun/Creatinine Ratio 32.3 (12.0-20.0); CO2, Blood 33 mmol/L (21-32); Calcium, Blood 8.3 mg/dL (8.5-10.1); Chloride, Blood 95 mmol/L (98-108); Creatinine, Blood 0.53 mg/dL (0.40-1.00); Glomerular Filtration Rate >60 (60-); Glucose, Blood 140 mg/dL (70-99); Magnesium, Blood 2.2 mg/dL (1.6-2.4); Phosphorus, Blood 3.8 mg/dL (2.5-4.9); Potassium, Blood 4.2 mmol/L (3.5-5.5); Sodium, Blood 135 mmol/L (136-145)
--- NOTE | 2018-03-01 06:08 | NUR ---
Shift Summary: Patient slept well throughout shift. Continues to deny pain or discomfort. Transferred to bedside commode x3 this shift, becomes mildly SOB, and O2% decreases to mid 80's, BiPAP mask required at this time. On BiPAP throughout most of shift, 10//45-50%, FiO2 increased ot 65% with transfers. Peripheral IV's x2 remain patent and intact. Call light in reach, makes needs known. Will continue to monitor until report to day shift RN.
--- NOTE | 2018-03-01 07:18 | NUR ---
START OF SHIFT NOTE: PATIENT IS AWAKE AND ON BIPAP 11/14/13, FiO2 AT 45 %, ALERT AND ORIENTED X4, DENIES PAIN, REPORTS NO CHEST PAIN OR CHEST DISCOMFORT, VERBALIZED NEED TO URINATE, BEDPAN GIVEN, VOIDED 350 CC OF CLEAR YELLOW URINE, LS DIMINISHED, NSR, BLOOD PRESSURES CONTINUE TO BE ON LOWER END WHILE PATIENT IS LYING FLAT, SBPs IN UPPER 80S, INCREASE TO 110s WHEN PATIENT IS SITTING UP, SKIN REMAINS C/D/I CALL LIGHT IN REACH, WILL CONTINUE TO MONITOR.
--- NOTE | 2018-03-01 08:03 | NUR ---
PATIENT PLACED ON AIRVO FOR BREAKFAST, AT 45 L/MIN WITH 30 % FiO2.
--- NOTE | 2018-03-01 08:45 | NUR ---
PATIENT PLACED BACK ON BIPAP FROM AIRVO, FiO2 INCREASED TO 70 % FOR A FEW MINUTES D/T PATIENT'S O2 SATURATION OF 82 %, O2 SAT'S INCREASED AND FiO2 DECREASED TO 55 %, CALL LIGHT IN REACH, WILL CONTINUE TO MONITOR.
--- NOTE | 2018-03-01 10:06 | NUR ---
PATIENT REQUESTED ATIVAN D/T EXPECTING MANY VISITORS, GAVE 1 MG ATIVAN PO, PATIENT HAD NO PROBLEMS SWALLOWING, CALL LIGHT IN REACH, WILL CONTINUE TO MONITOR.
--- NOTE | 2018-03-01 10:15 | NUR ---
DR. CALABRESE IN TO SEE PATIENT.
--- NOTE | 2018-03-01 11:08 | NUR ---
PATIENT OFF BIPAP ON AIRVO 45 L/MIN WITH 30 % O2, PER DR. CALABRESE IT IS OK TO KEEP PATIENT OFF BIPAP AND LEAVE HER ON AIRVO WITH O2 SATS NO LOWER THAN 88 %, RT NOTIFIED, CALL LIGHT IN REACH, WILL CONTINUE TO MONITOR.
--- NOTE | 2018-03-01 11:59 | NUR ---
DR. MCFARLANE IN TO SEE PATIENT, NO NEW ORDERS RECEIVED.
--- NOTE | 2018-03-01 12:55 | NUR ---
VISITORS AT BEDSIDE, PATIENT DOING WELL ON AIRVO AT THIS TIME, CALL LIGHT IN REACH, WILL CONTINUE TO MONITOR.
--- NOTE | 2018-03-01 14:25 | NUR ---
PATIENT IS EXTREMELY ANXIOUS, HR 122, RECEIVED ATIVAN 1 MG PO ORDERED, CALL LIGHT IN REACH, WILL CONTINUE TO MONITOR.
--- NOTE | 2018-03-01 16:16 | NUR ---
PATIENT ON BIPAP FiO2 70 %, HR 123, ASKING TO BE PLACED ON AIRVO AND INCREASE FiO2 TO 50 % WITH 45 L/MIN FLOW RATE, PATIENT HAS VISITORS AT BEDSIDE AND WANTS TO TALK, CALL LIGHT IN REACH, WILL CONTINUE TO MONITOR.
--- NOTE | 2018-03-01 16:43 | NUR ---
PATIENT UP TO BSC, PLACED BACK ON BIPAP WITH FiO2 AT 70 %, CALL LIGHT IN REACH, DR. CALABRESE UPDATED ON PATIENT CONDITION WITH INCREASED HR AND INCREASED FiO2 ON BOTH AIRVO AND BIPAP.
--- NOTE | 2018-03-01 17:23 | NUR ---
SHIFT SUMMARY NOTE: PATIENT CONTINUES TO SWITCH BETWEEN BIPAP AND AIRVO, STAYED ON AIRVO LONGER TODAY, BUT HAD TO INCREASE O2 TO 50 % TO KEEP O2 SATS ABOVE 88, AND HEART RATE BELOW 123, LS DIMINISHED THROUGHOUT WITH FINE CRACKLES BILATERALLY, NSR WITH SINUS TACHYCARDIA, DR. CALABRESE AWARE, PATIENT RECEIVED ATIVAN 1 MG PO TWICE TO HELP WITH ANXIETY AND VISITORS AT BEDSIDE, VOIDED USING BEDPAN, USED BSC FOR EXTRA LARGE BM, AND HAD TO INCREASE FiO2 TO 80 % FOR 15-20 MINUTES AFTER, PATIENT HAS GOOD APPETITE AND EATS 100 % OF ALL MEALS WHILE BEING ON AIRVO 45 L/MIN AND O2 AT 40-50 %, TAKES ALL PO MEDICATIONS WITH WATER AND HAS NO PROBLEM SWALLOWING, RT IN FREQUENTLY TO ADJUST BIPAP AND AIRVO AND GIVE BREATHING TREATMENTS, PATIENT IS PLEASANT AND COOPERATIVE, ALERT AND ORIENTED X4, DENIES PAIN, REPORTS NO N/V, NO CHEST PAIN/DISCOMFORT, CALL LIGHT IN REACH, WILL CONTINUE TO MONITOR AND GIVE REPORT TO ONCOMING MEDICAL VOUCHER CLERK RN.
--- NOTE | 2018-03-01 19:35 | NUR ---
[place] of Care: Patient alert and oriented, sitting upright in bed watching tv. VSs, currently on BiPAP 10/5/60%, O2-88-93%, states breathing is comfortable at this time. Peripheral IV to LFA D/C'd per leaking at this time. Peripheral IV to RFA patent and intact. Denies pain, or discomfort. Call light in reach, makes needs known. Uses Airvo NC for breaks from BiPAP without difficulty, but plan to keep patient on BiPAP mask while sleeping. Will continue to monitor for pain, comfort, safety.
--- NOTE | 2018-03-02 06:15 | NUR ---
Shift Summary: Patient slept well throughout shift. Continues to deny pain or discomfort. Slight SOB with exertion, 3-5minutes to return to baseline. On BiPAP 10//45-50% throughout most of shift, FiO2 increased to 60-65% when O2% decreased to mid 80's with exertion. Voided using bed-sanchez without difficulty, urine appearance wnl. Uses call light for assistance, makes needs known. Will continue to monitor until report to day shift RN.
--- NOTE | 2018-03-02 10:03 | NUR ---
PT IS WEARING HER BIPAP AT THIS TIME. PT DESATURATES WITH ACTIVITY. MORE SHORT OF BREATH WITH ACTIVITY.
--- NOTE | 2018-03-02 14:06 | NUR ---
Anisa was pleasant and welcoming of encouragement. She feels well supported by friends/family. She is very hopeful a lung transplant is in her near future. Talking is difficult, so visit kept brief. No moravian preference. I will remain available.
--- NOTE | 2018-03-02 18:25 | NUR ---
SHIFT SUMMARY: PT IS ALERT AND ORIENTED. PT HAS BEEN USING MOSTLY HER BIPAP TODAY. OFF ONLY DURING MEALS. USING AIRVO O2 DURING MEALS AND BREAKS. DENIES PAIN. PT GETS ANXIOUS AT TIMES. PT DOES HELP WITH SELF CARE DESPITE BEING EXCESSIVELY SHORT OF BREATH WITH ACTIVITY. PT HAD RECEIVED 2 DOSES OF ATIVAN TODAY FOR ANXIETY.
--- NOTE | 2018-03-02 19:25 | NUR ---
ASSESSMENT ASSUMED CARE OF PT. PT AWAKE SITTING UP IN BED WATCHING TV. DENIES PAIN OR DISCOMFORT. STATES,"A LITTLE TIRED TONIGHT. I HAD A BATH TODAY AND IT WORE ME OUT". LUNGS WITH EXP WHEEZES AND FINE CRACKLES. DECREASED IN BASES. BIPAP 10/5 RATE 14 FIO2 AT 55%. RESP RATE IN THE 30'S WITH TV 550'S. PT DENIES COUGH. STATES,"ABOUT THE SAME", WHEN ASKED ABOUT SOB. HEART RATE TACHY, BP STABLE. NO EDEMA. MAEW. BT+ ABD SOFT AND NONTENDER. DENIES N/V. IV 20G TO RIGHT FOREARM WITH NS AT 50 ML/HR, SITE CLEAR. PT MOVING AND TURNING SELF IN BED.
--- NOTE | 2018-03-02 23:52 | NUR ---
REASSESSMENT PT SLEEPING WITH BIPAP ON. AWAKENS EASILY TO VERBAL STIMULI. DENIES PAIN. VSS. RESP PANEL SWAB DONE. ORAL CARE DONE. PT MOVING AND TURNING SELF IN BED.
[2018-03-03 01:08] LABS: Adenovirus Not Detected (NOT DETECT); Bordetella pertussis Not Detected (NOT DETECT); Chlamydophila pneumoniae Not Detected (NOT DETECT); Coronavirus 229E Not Detected (NOT DETECT); Coronavirus HKU1 Not Detected (NOT DETECT); Coronavirus NL63 Not Detected (NOT DETECT); Coronavirus OC43 Not Detected (NOT DETECT); Human Metapneumovirus Not Detected (NOT DETECT); Human Rhinovirus/Enterovirus Not Detected (NOT DETECT); Influenza A Not Detected (NOT DETECT); Influenza A/2009-H1 Not Detected (NOT DETECT); Influenza A/H1 Not Detected (NOT DETECT); Influenza A/H3 Not Detected (NOT DETECT); Influenza B Not Detected (NOT DETECT); Mycoplasma pneumoniae Not Detected (NOT DETECT); Parainfluenza Virus 1 Not Detected (NOT DETECT); Parainfluenza Virus 2 Not Detected (NOT DETECT); Parainfluenza Virus 3 Not Detected (NOT DETECT); Parainfluenza Virus 4 Not Detected (NOT DETECT); Respiratory Syncytial Virus Not Detected (NOT DETECT)
[2018-03-03 04:08] LABS: BASOPHILS ABSOLUTE AUTO 0.04 K/mm3 (0.00-0.23); BASOPHILS PERCENT AUTO 0 % (0-2); EOSINOPHILS ABSOLUTE AUTO 0.01 K/mm3 (0.00-0.68); EOSINOPHILS PERCENT AUTO 0 % (0-6); Hematocrit 37.3 % (33.0-51.0); Hemoglobin 11.3 g/dL (11.5-16.0); IMMATURE GRAN PERCENT AUTO 3 % (0-1); LYMPHOCYTES ABSOLUTE AUTO 1.29 K/mm3 (0.84-5.20); LYMPHOCYTES PERCENT AUTO 10 % (21-46); MONOCYTES ABSOLUTE AUTO 0.47 K/mm3 (0.16-1.47); MONOCYTES PERCENT AUTO 4 % (4-13); Mean Corpuscular HGB Conc 30.3 g/dL (31.5-36.5); Mean Corpuscular Volume 96 fL (80-100); Mean Platelet Volume 9.5 fL (9.1-12.4); NEUTROPHILS ABSOLUTE AUTO 10.74 K/mm3 (1.96-9.15); NEUTROPHILS PERCENT AUTO 83 % (41-73); Platelet Count 362 K/mm3 (150-400); RDW Coefficient Variation 14.4 % (11.7-14.2); RDW Standard Deviation 49.9 fL (35.1-46.3); Red Blood Cell Count 3.89 M/mm3 (3.80-5.20); White Blood Cell Count 12.95 K/mm3 (4.00-11.30)
--- NOTE | 2018-03-03 04:15 | NUR ---
REASSESSMENT PT AWAKE, ASSISTING WITH MOVING IN BED TO USE BEDPAN. BIPAP FIO2 INCREASED TO 60% WHILE TURNING AND MOVING. BACK DOWN TO 45% AFTER REPOSITIONED. LUNGS CONT WITH WHEEZES AND FINE CRACKLES. VSS.
[2018-03-03 04:43] LABS: Alanine Aminotransfer (ALT/SGP 24 U/L (12-78); Albumin, Blood 2.8 g/dL (3.4-5.0); Albumin/Globulin Ratio 0.8 (0.8-1.8); Alk Phos 64 U/L (50-136); Anion Gap 7 mmol/L (6-16); Aspartate Aminotrans (AST/SGOT 11 U/L (12-37); Bilirubin, Total 0.4 mg/dL (0.1-1.0); Blood Urea Nitrogen 14 mg/dL (8-24); Bun/Creatinine Ratio 26.8 (12.0-20.0); CO2, Blood 33 mmol/L (21-32); Calcium, Blood 8.3 mg/dL (8.5-10.1); Chloride, Blood 93 mmol/L (98-108); Creatinine, Blood 0.52 mg/dL (0.40-1.00); Globulin, Blood 3.7 g/dL (2.2-4.0); Glomerular Filtration Rate >60 (60-); Glucose, Blood 141 mg/dL (70-99); Potassium, Blood 4.5 mmol/L (3.5-5.5); Sodium, Blood 133 mmol/L (136-145); Total Protein, Blood 6.5 g/dL (6.4-8.2)
--- NOTE | 2018-03-03 05:51 | NUR ---
SHIFT SUMMARY PT RESTED QUIETLY THROUGHOUT THE NIGHT WITH BIPAP ON. LUNGS CONT TO HAVE WHEEZES AND FINE CRACKLES. BIPAP SETTINGS 10/5 RATE 14 FIO2 DOWN FROM 55% TO 45% DURING THE NIGHT. PT TOLERATING WELL. PT TAKING SHORT BREAKS FROM BIPAP AND USING AIRVO TO TAKE MEDS AND ORAL CARE. PT ASSISTING WITH TURNING TO USE BEDPAN. PT STATES,"I'M FEELING MUCH BETTER". VSS. REPORT TO ON COMING NURSE.
--- NOTE | 2018-03-03 12:03 | NUR ---
REASSESSMENT: PT HAS BEEN RESTING IN BED ON THE BIPAP FOR MOST OF THE MORNING. SHE SWITCHES TO THE AIRVO AT 45% FOR MEALS, BUT OTHERWISE HAS BEEN COMPLETELY DEPENDENT ON THE BIPAP. SHE REQUIRES AN INCREASE IN OXYGEN TO 55% FIO2 FOR MINIMAL ACTIVITY, SUCH ROLLING IN BED, AND TAKES ABOUT 5 MINUTES AFTERWARDS TO RECOVER TO WHERE THE OXYGEN CAN BE TURNED BACK DOWN TO 45%. EVEN WITH JUST TALKING TO HER FAMILY SHE STATED IT FELT LIKE SHE NEEDED MORE OXYGEN. SHE IS SR, SIT WITH ACTIVITY, BP STABLE. VOIDING IN THE BEDPAN. CONTINUING TO MONITOR.
--- NOTE | 2018-03-03 16:40 | NUR ---
SHIFT SUMMARY: PT HAS CONTINUED TO BE DEPENDENT ON THE BIPAP AND AIRVO THROUGHOUT THE SHIFT. BREATHING REMAINS LABORED WITH MINIMAL EXERTION. LUNGS DIM. SIT, BP STABLE. SHE IS EATING WELL, VOIDING. STOOL SOFTENER GIVEN TODAY AT PT'S REQUEST. FAMILY HAS BEEN IN AND OUT THROUGHOUT THE DAY. CONTINUING TO MONITOR.
--- NOTE | 2018-03-03 19:10 | NUR ---
ASSUMED CARE REPORT AND ASSESSMENT COMPLETED. PT IS A&O WITHOUT COMPLAINTS. CURRENTLY ON BIPAP 10/5 FIO2 55%, PER PT AND REPORT, PT REQUIRES INCREASED FIO2 WITH ANY ACTIVITY. PT IS VERY AWARE OF O2 SATS AND REQUESTS FIO2 CHANGES BASED ON WORK OF BREATHING AND O2 SATS. NS AT 50ML/HR, VSS, EKG SHOWS ST AND O2 SATS 90-95%.
[2018-03-04 03:29] LABS: BASOPHILS ABSOLUTE AUTO 0.03 K/mm3 (0.00-0.23); BASOPHILS PERCENT AUTO 0 % (0-2); EOSINOPHILS ABSOLUTE AUTO 0.03 K/mm3 (0.00-0.68); EOSINOPHILS PERCENT AUTO 0 % (0-6); Hematocrit 36.5 % (33.0-51.0); Hemoglobin 11.4 g/dL (11.5-16.0); IMMATURE GRAN ABSOLUTE AUTO 0.45 K/mm3 (0.00-0.10); IMMATURE GRAN PERCENT AUTO 3 % (0-1); LYMPHOCYTES ABSOLUTE AUTO 1.18 K/mm3 (0.84-5.20); LYMPHOCYTES PERCENT AUTO 8 % (21-46); MONOCYTES ABSOLUTE AUTO 0.49 K/mm3 (0.16-1.47); MONOCYTES PERCENT AUTO 4 % (4-13); Mean Corpuscular HGB 29.5 pg (26.0-34.0); Mean Corpuscular HGB Conc 31.2 g/dL (31.5-36.5); Mean Corpuscular Volume 94 fL (80-100); Mean Platelet Volume 9.3 fL (9.1-12.4); NEUTROPHILS ABSOLUTE AUTO 11.93 K/mm3 (1.96-9.15); NEUTROPHILS PERCENT AUTO 85 % (41-73); Platelet Count 346 K/mm3 (150-400); RDW Coefficient Variation 14.6 % (11.7-14.2); RDW Standard Deviation 49.8 fL (35.1-46.3); Red Blood Cell Count 3.87 M/mm3 (3.80-5.20); White Blood Cell Count 14.11 K/mm3 (4.00-11.30)
[2018-03-04 03:51] LABS: Alanine Aminotransfer (ALT/SGP 24 U/L (12-78); Albumin, Blood 2.8 g/dL (3.4-5.0); Albumin/Globulin Ratio 0.8 (0.8-1.8); Alk Phos 67 U/L (50-136); Anion Gap 6 mmol/L (6-16); Aspartate Aminotrans (AST/SGOT 17 U/L (12-37); Bilirubin, Total 0.4 mg/dL (0.1-1.0); Blood Urea Nitrogen 16 mg/dL (8-24); Bun/Creatinine Ratio 31.8 (12.0-20.0); CO2, Blood 33 mmol/L (21-32); Calcium, Blood 8.4 mg/dL (8.5-10.1); Chloride, Blood 95 mmol/L (98-108); Globulin, Blood 3.7 g/dL (2.2-4.0); Glomerular Filtration Rate >60 (60-); Glucose, Blood 158 mg/dL (70-99); Potassium, Blood 4.5 mmol/L (3.5-5.5); Sodium, Blood 134 mmol/L (136-145); Total Protein, Blood 6.5 g/dL (6.4-8.2)
--- NOTE | 2018-03-04 06:12 | NUR ---
SHIFT SUMMARY NO ACUTE EVENTS OVERNIGHT. PT REMAINED ON BIPAP 10/5 WITH FIO2 AT 50% FOR MAJORITY OF SHIFT BUT TITRATED UP TO 60-70% WITH ANY ACTIVITY. PT REQUESTED TO GET UP TO USE BSC FOR BM THIS AM, WOB/RR INCREASED TO 50'S BUT MAINTAINED SATS >90%. NS AT 50ML/HR PT HAS HAD NO COMPLAITNS FOR SHIFT.
--- NOTE | 2018-03-04 07:30 | NUR ---
ASSUMED CARE OF PATIENT; SEE ASSESSMENT CHARTING FOR DETAILS. PATIENT DENIES ACUTE C/O. REMAINS ON BIPAP WITH SETTINGS: 10/5, RATE 14 AND FIO2 50%. LUNGS WITH R ANT WHEEZES; DIMINSHED T/O. SEVERE DYSPNEA WITH ANY EXERTION; OXYGEN ADJUSTED NEEDED. MONITOR WITH NSR TO ST; RATE 90'S TO 122/MIN. IV INFUSING WITH NS AT 50ML/HR.
--- NOTE | 2018-03-04 08:30 | NUR ---
UP TO BSC WITH SBA; FREQUENT REST PERIODS WITH POSITION CHANGES. HAD LARGE, SOFT BM AND VOIDED. RN CLEANED PATIENT UP; ADJUSTED OXYGEN T/O ACTIVITY AND REDUCED OXYGEN BACK DOWN AFTER SETTLED IN BED.
--- NOTE | 2018-03-04 09:50 | NUR ---
DR. CHEUNG HERE; SPOKE TO PATIENT RE: POC RELATING TO LUNG TRANSPLANT. HAS SPOKEN TO STAFF IN [place] ([facility]); AWAITING FOR PHYSICIAN TO RETURN HER CALL.
--- NOTE | 2018-03-04 11:30 | NUR ---
BATHED BY VENEER SHEET REPAIRER'S AND HAIR WASHED.
--- NOTE | 2018-03-04 12:30 | NUR ---
FAMILY IN TO VISIT; PATIENT OFF BIPAP FOR MEALS AND VISITS; ON AIRVO WITH OXYGEN INCREASED DURING EXERTION. BACK ON BIPAP AFTER MEALS AND VISITORS LEAVING.
--- NOTE | 2018-03-04 13:30 | NUR ---
ATTEMPT A 2ND IV SITE BY SUE JENSEN USING U/S MACHINE; UNSUCCESSFUL.
--- NOTE | 2018-03-04 15:30 | NUR ---
IV PLACED BY MIKEY TLALEY IN [place] (20G) WITH USE OF U/S MACHINE.
--- NOTE | 2018-03-04 16:00 | NUR ---
L ARM IV INFILTRATE; IV TURNED OFF; AND CATHETER DC'D.
--- NOTE | 2018-03-04 16:30 | NUR ---
HOT PACKS TO R ARM AND IV PLACED IN R HAND WITH 20G BY RN; GREAT BLOOD RETURN AND NO BRUISING; IVF INFUSING AT 100ML/HR.
--- NOTE | 2018-03-04 16:35 | NUR ---
DR. CHEUNG RETURNED; INFORMED PATIENT SHE SPOKE TO PHYSICIAN IN [place]; PATIENT NOT YET PLACED ON LUNG TRANSPLANT LIST D/T DECREASED RESP. STATUS AND NEED FOR BX OF LUNG NODULE. PATIENT TEARFUL AND STATES SHE HAS DONE EVERYTHING THAT WAS ASKED OF HER. DR. CHEUNG STATED PHYSICIAN RECOMMENDS 1GM SOLUMEDROL IVPB DAILY X3; HOPING TO IMPROVE STATUS SO BX CAN BE SCHEDULED.
--- NOTE | 2018-03-04 17:00 | NUR ---
DR. CHEUNG INSTRUCTED RN TO CHANGE IVF TO TKO SINCE PATIENT EATING/DRINKING WELL.
--- NOTE | 2018-03-04 18:00 | NUR ---
SUMMARY: PATIENT VANESSA. 90% OF DINNER. SOLUMEDROL, 1 GM GIVEN, IVPB; IV SITE'S RFA AND R HAND WORKING WELL AND NOT CAUSING DISCOMFORT. BOTH SITES SALINE LOCKED AFTER INFUSIONS COMPLETED. OVERALL STATUS UNCHANGED; PATIENT RESTFUL AFTER DINNER. ATIVAN IV GIVEN PRIOR TO DINNER D/T INCREASED ANXIETY; APPEARS CALMER AFTER MED. GIVEN.
--- NOTE | 2018-03-04 19:15 | NUR ---
ASSUMED CARE PT REMAINS PRIMARILY BIPAP DEPENDENT AT 10/5 FIO2 VAIRABLE DEPENDENT ON PT NEEDS, CURRENTLY AT 55%. PT DENIES COMPLAINTS OF PAIN OR ANXIETY AT THIS TIME. VSS, EKG SHOWS ST/ST AND O2 SATS 88-95%. CALL LIGHT IN REACH AND PT STATES SHE WILL CALL WITH NEEDS.
[2018-03-05 03:42] LABS: Hematocrit 34.6 % (33.0-51.0); Mean Corpuscular HGB 29.5 pg (26.0-34.0); Mean Corpuscular HGB Conc 31.8 g/dL (31.5-36.5); Mean Corpuscular Volume 93 fL (80-100); Mean Platelet Volume 9.7 fL (9.1-12.4); Platelet Count 328 K/mm3 (150-400); RDW Coefficient Variation 14.6 % (11.7-14.2); RDW Standard Deviation 48.6 fL (35.1-46.3); Red Blood Cell Count 3.73 M/mm3 (3.80-5.20); White Blood Cell Count 12.75 K/mm3 (4.00-11.30)
[2018-03-05 04:05] LABS: Anion Gap 8 mmol/L (6-16); Blood Urea Nitrogen 15 mg/dL (8-24); Bun/Creatinine Ratio 35.5 (12.0-20.0); CO2, Blood 31 mmol/L (21-32); Calcium, Blood 8.3 mg/dL (8.5-10.1); Chloride, Blood 94 mmol/L (98-108); Creatinine, Blood 0.42 mg/dL (0.40-1.00); Glomerular Filtration Rate >60 (60-); Glucose, Blood 161 mg/dL (70-99); Potassium, Blood 4.3 mmol/L (3.5-5.5); Sodium, Blood 133 mmol/L (136-145)
--- NOTE | 2018-03-05 07:30 | NUR ---
ASSUMED CARE OF PATIENT; SEE ASSESSMENT CHARTING FOR DETAILS. PATIENT DENIES ACUTE PAIN OR DISCOMFORT. CURRENTLY ON BIPAP MACHINE WITH SETTINGS: 10/5, RATE 14 AND FIO2 50%; OXYGEN INCREASED UP TO HIGH 70% DURING ACTIVITY (IE-POSITION CHANGES, BSC/TOILETING); TITRATED BACK DOWN PER PATIENTS' REQUEST/TOLERANCE. AIRVO AT 30%, WHEN BIPAP OFF, AT REST; INCREASED UP TO 40% WITH MEALS, TALKING, ETC. LUNGS REMAIN WITH INTERMITTENT ANTERIOR WHEEZES AND DIMINISHED T/O. BRP ON BEDPAN OR BSC; STOOLS SOFT/REGULAR AND VOIDING MOD. AMOUNTS; NO EDEMA NOTED. PIV, X2, TO RFA/HAND. MONITOR REMAINS NSR (90'S) TO SINUS TACH. HIGH 120'S WITH MILD ACTIVITY.
--- NOTE | 2018-03-05 09:55 | NUR ---
DR. WALTERS ([facility]) HERE TO SEE PATIENT; NO NEW ORDERS.
--- NOTE | 2018-03-05 13:20 | NUR ---
DR. CHEUNG HERE; SEE ORDERS.
--- NOTE | 2018-03-05 18:00 | NUR ---
SUMMARY: NO ACUTE CHANGES; PLEASANT AND COOPERATIVE. ATIVAN 0.5 MC PO X 2 FOR ANXIETY. RECEIVED 2ND DOSE OF 1GM SOLUMEDROL; 3RD DOSE TO BE GIVEN TOMORROW EVENING. PATIENT SL. NAUTIOUS FOLLOWING INFUSION BUT NO EMESIS AND TOLERATED 100% OF MEAL. BACK ON BIPAP AFTER DINNER; FIO2 50%.
--- NOTE | 2018-03-05 19:20 | NUR ---
ASSUMED CARE PT REMAINS ON BIPAP 11/14 AT 50% FIO2. PT REPORTS SHE WAS ABLE TO TOLERATE AIRVO FOR LONGER PERIODS TODAY. CURRENTLY SITTING UP IN BED VISITING WITH DAUGHTER AND DISCUSSING PROBLEMS ASSOCIATED WITH TRANSFER (INTUBATION/POOR PROGNOSIS FOR EXTUBATION). PT DENIES COMPLAINTS, DISCUSSED PLAN FOR SHIFT AND ENCOURAGED SLEEP.
[2018-03-06 03:55] LABS: Hematocrit 35.6 % (33.0-51.0); Hemoglobin 11.2 g/dL (11.5-16.0); Mean Corpuscular HGB 29.4 pg (26.0-34.0); Mean Corpuscular HGB Conc 31.5 g/dL (31.5-36.5); Mean Corpuscular Volume 93 fL (80-100); Mean Platelet Volume 9.9 fL (9.1-12.4); Platelet Count 330 K/mm3 (150-400); RDW Coefficient Variation 14.6 % (11.7-14.2); RDW Standard Deviation 49.6 fL (35.1-46.3); Red Blood Cell Count 3.81 M/mm3 (3.80-5.20); White Blood Cell Count 12.57 K/mm3 (4.00-11.30)
[2018-03-06 04:13] LABS: Anion Gap 6 mmol/L (6-16); Blood Urea Nitrogen 15 mg/dL (8-24); Bun/Creatinine Ratio 36.2 (12.0-20.0); CO2, Blood 33 mmol/L (21-32); Calcium, Blood 8.2 mg/dL (8.5-10.1); Chloride, Blood 95 mmol/L (98-108); Creatinine, Blood 0.41 mg/dL (0.40-1.00); Glomerular Filtration Rate >60 (60-); Glucose, Blood 158 mg/dL (70-99); Magnesium, Blood 2.3 mg/dL (1.6-2.4); Phosphorus, Blood 4.1 mg/dL (2.5-4.9); Potassium, Blood 4.3 mmol/L (3.5-5.5); Sodium, Blood 134 mmol/L (136-145)
--- NOTE | 2018-03-06 06:09 | NUR ---
SHIFT SUMMARY NO ACUTE CHANGES OVERNIGHT. PT REMAINS ON BIPAP 10/5 FIO2 50% FOR MAJORIY OF SHIFT BUT TITRATED UP TO 70% WITH ANY ACTIVITY. PT IS VERY AWARE OF O2 REQUIREMENTS AND WILL REQUEST TITRATIONS BASED ON RESP STATUS AND O2 SATS. VSS, EKG SHOWS SR O2 SATS 90-97%. PIV'S SL. WILL REPORT OFF TO AM RN.
--- NOTE | 2018-03-06 07:09 | NUR ---
ASSUMED CARE: PT RESTING QUIETLY, BIPAP IN PLACE AT THIS TIME, SETTINGS AT 10/5. NO ACUTE NEEDS OR CONCERNS AT THIS TIME
--- NOTE | 2018-03-06 10:20 | NUR ---
DR NAVARRO WAS IN TO SEE PT. PT WAS GIVEN PLAN AND BECAME TEARFUL. PT ASKED RN TO CALL HER SON AND DAUGHTER AND ASKED THEM TO COME SEE HER. THEY STATED THEY WERE ON THEIR WAY. DR NAVARRO STATES HE WILL SPEAK TO THEM TOO IF THEY WISH. THIS HAS BEEN RELAYED TO PT.
--- NOTE | 2018-03-06 11:01 | NUR ---
PT'S DAUGHTER AND SON IN ROOM. PT REQUESTS FOR DR NAVARRO TO SPEAK WITH THEM. DR NAVARRO IN ROOM AT THIS TIME
--- NOTE | 2018-03-06 11:20 | NUR ---
SPOKE WITH PALLIATIVE CARE TO ENSURE THEY ARE ON CASE FOR PT AND AWARE OF PT'S SITUATION. PLAN IS FOR THEM TO COME SPEAK WITH PT THIS AFTERNOON OR TOMORROW. PT CURRENTLY WEARING AIRVO. NO FURTHER NEEDS OR CONCERNS AT THIS TIME
--- NOTE | 2018-03-06 16:00 | NUR ---
PT STATES SHE HAS HEARTBURN. PROVIDED WITH MILK AND SPRITE MIXTURE. RETURNED TO ROOM AND PT STATES IMPROVING. ALSO GIVEN PRILOSEC. NO FURTHER NEEDS OR CONCERNS AT THIS TIME
--- NOTE | 2018-03-06 17:43 | NUR ---
SHIFT SUMMARY: PT CURRENTLY ON AIRVO AT 30L. SHE HAS BEEN ALTERNATING BETWEEN THIS AND BIPAP THOUGHOUT THE DAY. PT IS VERY GOOD ABOUT COMMUNICATING NEEDS AND CONCERNS AND WILL DIRECT STAFF TO BIPAP AND AIRVO SETTINGS THAT ARE APPROPRIATE FOR HER NEEDS. MEDICATED FOR ANXIETY X2. VISITORS AT BEDSIDE OFF AND ON THROUGHOUT SHIFT. NO FURTHER NEEDS OR CONCERNS NOTED. PLAN IS TO COMPLETE PULSE STEROID SERIES AND DETERMINE PROGRESS BEFORE BIOPSY OF LUNG CAN BE COMPLETED
[2018-03-07 04:03] LABS: BASOPHILS ABSOLUTE AUTO 0.04 K/mm3 (0.00-0.23); BASOPHILS PERCENT AUTO 0 % (0-2); EOSINOPHILS ABSOLUTE AUTO 0.01 K/mm3 (0.00-0.68); EOSINOPHILS PERCENT AUTO 0 % (0-6); Hematocrit 34.3 % (33.0-51.0); IMMATURE GRAN ABSOLUTE AUTO 0.44 K/mm3 (0.00-0.10); IMMATURE GRAN PERCENT AUTO 4 % (0-1); LYMPHOCYTES ABSOLUTE AUTO 0.82 K/mm3 (0.84-5.20); LYMPHOCYTES PERCENT AUTO 8 % (21-46); MONOCYTES ABSOLUTE AUTO 0.32 K/mm3 (0.16-1.47); MONOCYTES PERCENT AUTO 3 % (4-13); Mean Corpuscular HGB 29.9 pg (26.0-34.0); Mean Corpuscular HGB Conc 32.1 g/dL (31.5-36.5); Mean Corpuscular Volume 93 fL (80-100); NEUTROPHILS ABSOLUTE AUTO 9.14 K/mm3 (1.96-9.15); NEUTROPHILS PERCENT AUTO 85 % (41-73); Platelet Count 329 K/mm3 (150-400); RDW Coefficient Variation 14.8 % (11.7-14.2); RDW Standard Deviation 50.4 fL (35.1-46.3); Red Blood Cell Count 3.68 M/mm3 (3.80-5.20); White Blood Cell Count 10.77 K/mm3 (4.00-11.30)
[2018-03-07 04:21] LABS: Anion Gap 8 mmol/L (6-16); Blood Urea Nitrogen 15 mg/dL (8-24); Bun/Creatinine Ratio 32.8 (12.0-20.0); CO2, Blood 32 mmol/L (21-32); Calcium, Blood 8.3 mg/dL (8.5-10.1); Chloride, Blood 92 mmol/L (98-108); Creatinine, Blood 0.46 mg/dL (0.40-1.00); Glomerular Filtration Rate >60 (60-); Glucose, Blood 153 mg/dL (70-99); Potassium, Blood 4.3 mmol/L (3.5-5.5); Sodium, Blood 132 mmol/L (136-145)
--- NOTE | 2018-03-07 07:30 | NUR ---
[id number]: INITIALLY TACHYPNIC, TACHYCARDIC, ANXIOUS. SPO2 MID 90s ON 50% USING BiPAP. ATIVAN 0.5 MG GIVEN W/ HS MEDS, PT SLEPT AT LONG INTERVALS, HR 85-95, RR 24-32, SPO2 STABLE. ACTIVITY INTOL TURNING IN BED, FIO2 INCREASED TO 60% IN ANTICIPATION OF ACTIVITY, MINIMAL DESAT, RECOVERED IN LESS THAN 5 MIN, O2 TITRATED TO 50%.
--- NOTE | 2018-03-07 08:45 | NUR ---
NURSING SUMMARY ALERT AND ORIENTED X 4. FAMILY AT BEDSIDE. SINUS RHYTHM TO SINUS TACH ON THE MONITOR, HR 88-105. LUNGS COARSE THROUGHOUT, DIMINISHED AT THE BASES, SHALLOW BREATHS, TACHYPNEIC, RR 31-39. ON BIPAP UNTIL 0815, SETTINGS 10/5 AND FIO2 50%, REQUIRES HIGHER FIO2 WITH EXERTION. INCREASED FIO2 TO 60% AND ASSISTED OUT OF BED TO THE BEDSIDE COMMODE FOR VOID AND THEN DECREASED FIO2 BACK DOWN TO 50%. PATIENT REQUESTED TO BE CHANGED TO AIRVO IN PREPARATION FOR BREAKFAST AND TO VISIT WITH FAMILY. SATS REMAINING 88% TO 93%. RT GIVING ROUTINE BREATHING TREATMENTS. PT WITH TREMORS, STATES THIS USUALLY OCCURS WITH STEROID TREATMENTS. TOLERATING REGULAR DIET. CALLS APPROPRIATELY FOR ASSISTANCE TO THE BEDSIDE COMMODE OR OUT OF BED. STATED SHE WILL CALL TO GET UP INTO THE CHAIR WHEN SHE IS READY. RED/BLOTCHY COCCYX, NO BREAKDOWN NOTED, INSTRUCTED TO APPLY MOISTURIZING CREAMS TO HELP HEAL AND PREVENT BREAKDOWN. RIGHT HAND 20G AND RIGHT FOREARM 22G, BOTH FLUSH WELL.
--- NOTE | 2018-03-07 14:00 | NUR ---
DR. NAVARRO AT BEDSIDE FOR EVALUATION AND MEETING WITH THE FAMILY. DR. NAVARRO CALLED RADIOLOGY TO INQUIRE IF/WHEN THE BIOPSY COULD BE DONE. AWAITING RETURNED CALL.
--- NOTE | 2018-03-07 18:06 | NUR ---
NURSING SUMMARY ALERT AND ORIENTED X4. ST ON MONITOR, HR 110'S. LUNGS COARSE THROUGHOUT, SWITCHES BETWEEN BIPAP AND AIRVO THROUGHOUT THE DAY NEEDED. CALLS APPROPRIATELY FOR ASSISTANCE OUT OF BED TO THE BEDSIDE COMMODE. PLAN TO HAVE BIOPSY OF MASS ON LUNG ON FRIDAY PER DR. NAVARRO. AFTERWARDS, PLAN TO BE ON LUNG TRANSPLANT LIST AT [facility].
--- NOTE | 2018-03-08 06:38 | NUR ---
[id number]: INITIALLY USING HEATED HIGH FLOW O2, CHANGED TO BiPAP IN PREP FOR SLEEPING. STATES ADEQUATE ANXIETY RELIEF FROM PREV DOSE OF 0.5MG ATIVAN BUT NOT SLEEPING SOUNDLY PREV NOC. ACTIVITY VANESSA PREV, INCREASING O2 PRIOR TO ACTIVITY PREVENTS DESATURATION. ATIVAN 1MG PO, SLEPT AT INTERVALS.
[2018-03-08 08:30] LABS: Albumin, Blood 2.6 g/dL (3.4-5.0); Anion Gap 7 mmol/L (6-16); Blood Urea Nitrogen 15 mg/dL (8-24); Bun/Creatinine Ratio 34.8 (12.0-20.0); CO2, Blood 31 mmol/L (21-32); Calcium, Blood 8.1 mg/dL (8.5-10.1); Chloride, Blood 96 mmol/L (98-108); Creatinine, Blood 0.43 mg/dL (0.40-1.00); Glomerular Filtration Rate >60 (60-); Glucose, Blood 85 mg/dL (70-99); Phosphorus, Blood 4.4 mg/dL (2.5-4.9); Potassium, Blood 3.9 mmol/L (3.5-5.5); Sodium, Blood 134 mmol/L (136-145)
--- NOTE | 2018-03-08 10:32 | NUR ---
RADIOLOGY AT BEDSIDE FOR CXR.
--- NOTE | 2018-03-08 14:57 | NUR ---
Visit to pt who is well known to me. She is smiling, upbeat, despite soboe at baseline with conversation. She has received detailed update and options for her care discussed with Dr Masters this am and will have a biopsy of her lung nodule here tomorrow. EMR reviewed and pt relates this information confirming notes read. Her son is sitting next to her and she tells me she is very happy to have seen her brother and marco from [place], who made the trip to visit her yesterday. Pt is hopeful that lung nodule biopsy will be negative for malignancy and that she will be able to return to working with the lung transplant team and eventually get on the list for lung transplant. Pt was glad to see me and thanked me for the visit. We had light hearted, non medical conversation for distraction for much of our visit also. Pal Care to cont to follow for s/s management and support to pt/family.
--- NOTE | 2018-03-08 18:20 | NUR ---
NURSING SUMMARY ALERT AND ORIENTED X 4. SR - ST, HR 99-128, INCREASES WITH EXERTION. LUNGS COARSE, SHALLOW BREATHS, RR 33-48, CHANGES BETWEEN BIPAP AND THE AIRVO THROUGHOUT THE DAY FREQUENTLY. PT DESATS WITH MILD EXERTION INCLUDING GETTING UP TO THE BEDSIDE COMMODE AND TURNING IN BED FOR THE BEDPAN. HAVE BEEN INCREASING FIO2 ON BIPAP AND AIRVO WITH EXERTION. RESTARTED PREDNISONE TODAY AND STARTED PRN RT TREATMENTS. REGULAR DIET, EATS WELL. NEEDS TO BE NPO AFTER MIDNIGHT IN PREPARATION FOR LUNG BIOPSY TOMORROW. NEED TO HOLD HEPARIN AFTER MIDNIGHT IN PREPARATION FOR LUNG BIPSY WELL. VOIDS ADEQUATE AMOUNTS PER BEDPAN OR BEDSIDE COMMODE. TWO BM'S TODAY, MILD CONSTIPATION, RECEIVING COLACE, REFUSED SUPPOSITORY. DISCUSSED USE OF ATIVAN AND ROXICODONE TO REDUCE ANXIETY AND ASSIST WITH THE WORK OF BREATHING. PATIENT HAS TAKEN ATIVAN 1 MG X 1 THIS SHIFT AND IS CONSIDERING ROXICODONE. SON HAS BEEN AT BEDSIDE FOR SEVERAL HOURS TODAY. PATIENT CALLS APPROPRIATELY FOR HELP.
[2018-03-09 04:14] LABS: BASOPHILS ABSOLUTE AUTO 0.05 K/mm3 (0.00-0.23); BASOPHILS PERCENT AUTO 0 % (0-2); EOSINOPHILS ABSOLUTE AUTO 0.11 K/mm3 (0.00-0.68); EOSINOPHILS PERCENT AUTO 1 % (0-6); Hematocrit 37.7 % (33.0-51.0); Hemoglobin 11.6 g/dL (11.5-16.0); IMMATURE GRAN ABSOLUTE AUTO 0.42 K/mm3 (0.00-0.10); IMMATURE GRAN PERCENT AUTO 3 % (0-1); LYMPHOCYTES PERCENT AUTO 10 % (21-46); MONOCYTES ABSOLUTE AUTO 0.65 K/mm3 (0.16-1.47); MONOCYTES PERCENT AUTO 5 % (4-13); Mean Corpuscular HGB 28.9 pg (26.0-34.0); Mean Corpuscular HGB Conc 30.8 g/dL (31.5-36.5); Mean Corpuscular Volume 94 fL (80-100); Mean Platelet Volume 10.2 fL (9.1-12.4); NEUTROPHILS ABSOLUTE AUTO 10.13 K/mm3 (1.96-9.15); NEUTROPHILS PERCENT AUTO 80 % (41-73); Platelet Count 297 K/mm3 (150-400); RDW Coefficient Variation 15.3 % (11.7-14.2); RDW Standard Deviation 52.2 fL (35.1-46.3); Red Blood Cell Count 4.01 M/mm3 (3.80-5.20); White Blood Cell Count 12.66 K/mm3 (4.00-11.30)
[2018-03-09 04:27] LABS: Anion Gap 6 mmol/L (6-16); Blood Urea Nitrogen 9 mg/dL (8-24); Bun/Creatinine Ratio 19.8 (12.0-20.0); CO2, Blood 33 mmol/L (21-32); Calcium, Blood 8.5 mg/dL (8.5-10.1); Chloride, Blood 95 mmol/L (98-108); Creatinine, Blood 0.45 mg/dL (0.40-1.00); Glomerular Filtration Rate >60 (60-); Glucose, Blood 122 mg/dL (70-99); Magnesium, Blood 2.4 mg/dL (1.6-2.4); Phosphorus, Blood 3.4 mg/dL (2.5-4.9); Potassium, Blood 4.3 mmol/L (3.5-5.5); Sodium, Blood 134 mmol/L (136-145)
[2018-03-09 04:29] LABS: International Normalized Ratio 0.93; Prothrombin Time Results 9.9 Sec (9.7-11.5)
[2018-03-09 04:33] LABS: Albumin, Blood 2.6 g/dL (3.4-5.0); Anion Gap 7 mmol/L (6-16); Blood Urea Nitrogen 10 mg/dL (8-24); Bun/Creatinine Ratio 21.1 (12.0-20.0); CO2, Blood 33 mmol/L (21-32); Calcium, Blood 8.4 mg/dL (8.5-10.1); Chloride, Blood 95 mmol/L (98-108); Creatinine, Blood 0.48 mg/dL (0.40-1.00); Glomerular Filtration Rate >60 (60-); Glucose, Blood 120 mg/dL (70-99); Phosphorus, Blood 3.4 mg/dL (2.5-4.9); Potassium, Blood 4.2 mmol/L (3.5-5.5); Sodium, Blood 135 mmol/L (136-145)
--- NOTE | 2018-03-09 06:45 | NUR ---
[id number]: USING BiPAP T/O NOC, BASELINE FIO2 50%. RR 40s W/ EXERTION OF USING BEDPAN, FIO2 INCREASED TO 70% TO PREVENT DESATURATION/DECOMPENSATION. ANXIETY OF AIR HUNGER PRESENT, REFUSED ATIVAN. ROXYCODONE 5 MG GIVEN X 1, PT STATES RELIEVED DYSPNEA. SLEPT AT LONG INTERVALS.
--- NOTE | 2018-03-09 07:35 | NUR ---
NURSING SUMMARY ALERT AND ORIENTED X 4, ANXIOUS, DENIES NEED FOR ANTI-ANXIETY MEDICATIONS. LUNGS WITH CRACKLES THROUGHOUT, ON BIPAP AT SETTINGS 10/5 AT 55% FIO2, SATS REMAINING ABOVE 90%. ST ON MONITOR, HR 100-110. VSS. AFEBRILE. ASSISTED WITH TURNING TO USE THE BEDPAN, VOIDED 150 CC CLEAR YELLOW URINE. DESATS DURING EXERTION, TURNED FIO2 UP TO 80% AND TURNED BACK DOWN ONCE O2 SATS CAME BACK UP TO 90%, AND RR RETURNED TO BASELINE OF LESS THAN 40/MIN. NPO FOR RIGHT LUNG BIOPSY TODAY. AWAITING RETURNED CALL FROM CT REGADING TIME OF PROCEDURE. HEPARIN HELD. RIGHT HAND SALINE LOCK. FAMILY AT BEDSIDE.
--- NOTE | 2018-03-09 11:20 | NUR ---
RETURNED TO ROOM ICU 8 AFTER COMPLETION OF RIGHT LUNG BIOPSY. PUNCTURE SITE TO RIGHT MID/UPPER BACK NO SIGNS OF BLEEDING/HEMATOMA/CREPITUS. BANDAID DRESSING IN PLACE CDI. PT DENIES PAIN AND DISCOMFORT. ST ON MONITOR, HR 106, VSS. PLACED ON BIPAP AT 70% FIO2. SATS REMAINING ABOVE 90%, MARIA ALEJANDRA RT AT BEDSIDE.
--- NOTE | 2018-03-09 12:24 | NUR ---
NURSING SUMMARY ESCORTED PT TO CT SCAN FOR GUIDED LUNG BIOPSY. PT ASSISTED WITH MOVE TO CT TABLE AND THEN REPOSITIONED ON HER STOMACH FOR PREPARATION FOR BIOPSY. REMAINED IN CT SCAN WITH PT ON MONITOR AND AIRVO. VSS. ST ON MONITOR, HR 108, AIRVO AT 90% FIO2 WHILE ON STOMACH. SATS REMAINED ABOVE 90%.
--- NOTE | 2018-03-09 17:54 | NUR ---
NURSING SUMMARY ALERT AND ORIENTED X4. SR TO ST ON MONITOR, HR 99-110, INCREASES WITH EXERTION. LUNGS WITH CRACKLES THROUGHOUT, ALTERNATES BETWEEN THE BIPAP AT 10/5/55% FIO2 AND AIRVO AT 45L/60% FIO2. BOTH REQUIRE INCREASE IN FIO2 WITH MILD EXERTION LIKE TURNING TO HER SIDE IN BED. PT HAD A CT GUIDED RIGHT LUNG BIOPSY TODAY. PUNCTURE SITE IS AT THE RIGH MID/UPPER BACK WITH BANDAID DRESSING. NO SIGNS OF BLEEDING, NO HEMATOMA, AND NO CREPITUS. DENIES PAIN AT THE SITE. MEDICATING WITH ROXICODONE FOR CHEST PAIN/AIR HUNGER THAT PT FINDS VERY HELPFUL. TOLERATING A REGULAR DIET. CALLS FOR ASSISTANCE ONTO THE BEDPAN OR TO THE BEDSIDE COMMODE. VOIDS WNL. RIGHT HAND SALINE LOCK.
--- NOTE | 2018-03-09 19:00 | NUR ---
Hunt of Care: Patient alert and oriented x4, sitting upright in bed watching tv. Denies pain or discomfort at this time. Currently on BiPAP 10//55%, O2-91-93. Quickly becomes SOB with exertion, and FiO2 requirements increase (65-70%), approx 5-10 minutes to recover. Biopsy puncture site to rt upper back appears wnl, no s/s of bleeding or hematoma. Crepitus noted to rt upper chest wall, base of rt side of neck, and over trapezius muscle. No tracheal deviation, or acute signs of respiratory distress outside of normal dyspnea/SOB with exertion, VSS. Plan to contact Dr. Ignacio r/t findings. Peripheral IV x1 patent and intact. Call light in reach, makes needs known. Will continue to monitor for pain, comfort, safety.
--- NOTE | 2018-03-09 21:00 | NUR ---
Call to Dr. Ignacio: Spoke with Dr. Ignacio at this time r/t crepitus findings. Dr. Ignacio informed of crepitus, VS, and respiratory status (mentioned in previous note). Received order for chest x-ray in the morning.
[2018-03-10 03:42] LABS: BASOPHILS ABSOLUTE AUTO 0.05 K/mm3 (0.00-0.23); BASOPHILS PERCENT AUTO 0 % (0-2); EOSINOPHILS ABSOLUTE AUTO 0.06 K/mm3 (0.00-0.68); EOSINOPHILS PERCENT AUTO 0 % (0-6); Hematocrit 41.2 % (33.0-51.0); Hemoglobin 13.1 g/dL (11.5-16.0); IMMATURE GRAN ABSOLUTE AUTO 0.45 K/mm3 (0.00-0.10); IMMATURE GRAN PERCENT AUTO 3 % (0-1); LYMPHOCYTES ABSOLUTE AUTO 0.75 K/mm3 (0.84-5.20); LYMPHOCYTES PERCENT AUTO 5 % (21-46); MONOCYTES ABSOLUTE AUTO 0.39 K/mm3 (0.16-1.47); MONOCYTES PERCENT AUTO 2 % (4-13); Mean Corpuscular HGB 29.4 pg (26.0-34.0); Mean Corpuscular HGB Conc 31.8 g/dL (31.5-36.5); Mean Corpuscular Volume 93 fL (80-100); NEUTROPHILS ABSOLUTE AUTO 14.82 K/mm3 (1.96-9.15); NEUTROPHILS PERCENT AUTO 90 % (41-73); Platelet Count 354 K/mm3 (150-400); RDW Coefficient Variation 15.4 % (11.7-14.2); RDW Standard Deviation 51.7 fL (35.1-46.3); Red Blood Cell Count 4.45 M/mm3 (3.80-5.20); White Blood Cell Count 16.52 K/mm3 (4.00-11.30)
[2018-03-10 03:59] LABS: Albumin, Blood 2.9 g/dL (3.4-5.0); Anion Gap 8 mmol/L (6-16); Blood Urea Nitrogen 15 mg/dL (8-24); CO2, Blood 28 mmol/L (21-32); Calcium, Blood 8.8 mg/dL (8.5-10.1); Chloride, Blood 95 mmol/L (98-108); Creatinine, Blood 0.58 mg/dL (0.40-1.00); Glomerular Filtration Rate >60 (60-); Glucose, Blood 155 mg/dL (70-99); Phosphorus, Blood 4.2 mg/dL (2.5-4.9); Potassium, Blood 4.6 mmol/L (3.5-5.5); Sodium, Blood 131 mmol/L (136-145)
--- NOTE | 2018-03-10 04:24 | NUR ---
Crepitus/Call to Dr. Ignacio: Increase in crepitus noted to right upper chest wall, now persist around base of neck to left side. Crepitus also feels more prominent over rt chest wall. No changes noted to patient's respiratory status. Morning chest x-ray obtained, this nurse and RT agree that no obvious pneumothorax noted. Contacted Dr. Ignacio with findings. Received instructions to promote use of Airvo versus BiPAP. Patient now on Airvo and tolerating without difficulty. Will continue to monitor.
--- NOTE | 2018-03-10 06:29 | NUR ---
Shift Summary: No change in crepitus noted since 0400hr (see previous note). Also no change in patient's respiratory status, continues to have dyspnea/SOB with exertion, no acute changes/distress. Tolerating Airvo without difficulty, 35L/63% FiO2, VSS. Using bedpan or bedside commode without difficulty. Peripheral IV x1 patent and intact. Uses call light for assistance, makes needs known.
--- NOTE | 2018-03-10 07:30 | NUR ---
ASSUMED CARE: PT IN BED WITH AIRVO IN PLACE, ASKING STAFF TO PROVIDE SUPPOSITORY BECAUSE SHE FEELS SHE NEEDS TO HAVE A BM BUT IS UNABLE TO GO. SUPPOSITORY GIVEN. PT REQUESTED TO BE MOVED BACK TO BIPAP MASK FOR THIS. REMINDED PT THAT WE WILL NEED TO KEEP HER OFF BIPAP MUCH POSSIBLE DUE TO CREPITUS. CREPITUS NOTED ON CLAVICLE ON LEFT AND RIGHT SIDE, BELOW CLAVICLE ON RIGHT SIDE, RIGHT RIBS, AND ON RIBS OF LEFT POSTERIOR. PT GETS DYSPNEIC WITH ANY ACTIVITY, ANXIETY NOTED WITH THIS.
--- NOTE | 2018-03-10 09:39 | NUR ---
PT WAS SITTING UP AT SIDE OF BED WITH BIPAP MASK ON, REQUESTED FIO2 TO BE TURNED UP TO 75%. TACYPNEA NOTED. APPEARS TO BE TAKING LONGER TO RECOVER WITH ACTIVITY, O2 SAT AT 94% BUT TAKES LONGER THAN PREVIOUS DAYS CARING FOR THIS PT. CREPITUS APPEARS WORSE BETWEEN CLAVICLES BILATERAL SIDES. DISCUSSED WITH DR CALABRESE AND RT. SEE NEW ORDERS.
--- NOTE | 2018-03-10 11:43 | NUR ---
PT STARTED COUGHING UP THICK YELLOW SECRETIONS. NEW ORDERS FOR SPUTUM SAMPLE FROM DR CALABRESE. SAMPLE CUP GIVEN TO PT. BREATH SOUNDS IMPROVING, CRACKLES NOTED IN BASES BUT RUB NO LONGER HEARD ON LLL. CREPITUS IMPROVING. DR CALABRESE AWARE
--- NOTE | 2018-03-10 13:39 | NUR ---
Short visit after review of EMR and update from nursing. Pt had her biopsy of RlL nodule yesterday and results are pending. Pt and family remain desperately hopeful for negative for malignancy result. Pt is severly dyspnic at rest and unable to talk. RT in to give her a tx and I did not stay as she would try to talk, even with enouragement not to to conserve energy/breath. Pt has small pneumo per notes, bhakti and RN after procedure and some sq emphysema after procedure also. Pt receiving full respiratory support and tx per her wishes. Will cont to follow and support pt/family as indicated.
--- NOTE | 2018-03-10 14:51 | NUR ---
CREPITUS FELT DIRECTLY OVER TOP OF CLAVICLES BUT NOT IN OTHER PREVIOUS SPACES. MEDICATED FOR AIR HUNGER. DENIES FURTHER NEEDS OR CONCERNS
--- NOTE | 2018-03-10 17:30 | NUR ---
SHIFT SUMMARY: PT CURRENTLY SITTING UPRIGHT IN BED EATING DINNER. AIRVO AT 42L, 71% FIO2, SATTING AT 95%. CREPITUS ONLY NOTED ON TOP OF COLLAR BONES NOW. MEDICATED PT TWICE WITH OXICODONE FOR AIR HUNGER. DR CALABRESE AWARE. NO FURTHER NEEDS OR CONCERNS AT THIS TIME
--- NOTE | 2018-03-10 20:56 | NUR ---
ASSUMED CARE OF PT AT 1900. REPORT RECEIVED AT BEDSIDE. PT PRESENTS IN BED. ALERT AND ORIENTED, PLEASANT AND COOPERATIVE WITH CARE AND ASSESSMENT. PT IN NO APPARENT DISTRESS AT THIS TIME EXCEPT FOR NEEDING TO BE ON HIGHFLOW AIRVO. PT STATES SHE HAS BEEN ABLE TO EXPECTORATE YELLOW COLORED SECRETIONS EARLIER IN THE DAY. PT REQUESTS ONE ROXICODONE THIS EVENING TO HELP WITH AIRHUNGER. PT STATES THAT THIS HAS BEEN AFFECTIVE IN RELIEVING DYSPNEA. ROXICODONE PROVIDED. WILL REVIEW CHART AND PLAN OF CARE FOR THIS PT.
--- NOTE | 2018-03-10 21:54 | NUR ---
PT CURRENTLY RESTING IN BED WEARING AIRVO. NO ISSUES TO REPORT AT THIS TIME.
--- NOTE | 2018-03-10 22:44 | NUR ---
SUBCUTANEOUS EMPHYSEMA NOTED AT UPER-STERNAL REGION OF CHEST. AT SHOUDERS AND CIRCUM-NUCCAL MINIMALLY. WILL CONTINUE TO MONITOR.
--- NOTE | 2018-03-11 02:00 | NUR ---
PT ABLE TO GET UP TO COMMODE AND HAVE BM, AND VOID Q.S. PT REQUESTS TO WEAR BIPAP DURING EXERTION. PT CURRENTLY ON AIRVO WITH FIO2 AT 65 %. HAVE MEDICATED PT SEVERAL TIMES WITH A SINGLE ROXYCONDE TO HELP WITH 'AIR HUNGER' SYMPTOMS. PT STATES THAT THIS IS AFFECTIVE. WILL CONTINEU TO MONITOR PT.
[2018-03-11 03:46] LABS: BASOPHILS ABSOLUTE AUTO 0.05 K/mm3 (0.00-0.23); BASOPHILS PERCENT AUTO 0 % (0-2); EOSINOPHILS ABSOLUTE AUTO 0.03 K/mm3 (0.00-0.68); EOSINOPHILS PERCENT AUTO 0 % (0-6); Hematocrit 38.9 % (33.0-51.0); Hemoglobin 12.3 g/dL (11.5-16.0); IMMATURE GRAN ABSOLUTE AUTO 0.26 K/mm3 (0.00-0.10); IMMATURE GRAN PERCENT AUTO 2 % (0-1); LYMPHOCYTES ABSOLUTE AUTO 0.93 K/mm3 (0.84-5.20); LYMPHOCYTES PERCENT AUTO 6 % (21-46); MONOCYTES ABSOLUTE AUTO 0.73 K/mm3 (0.16-1.47); MONOCYTES PERCENT AUTO 5 % (4-13); Mean Corpuscular HGB 29.2 pg (26.0-34.0); Mean Corpuscular HGB Conc 31.6 g/dL (31.5-36.5); Mean Corpuscular Volume 92 fL (80-100); Mean Platelet Volume 9.9 fL (9.1-12.4); NEUTROPHILS ABSOLUTE AUTO 13.03 K/mm3 (1.96-9.15); NEUTROPHILS PERCENT AUTO 87 % (41-73); Platelet Count 354 K/mm3 (150-400); RDW Coefficient Variation 15.3 % (11.7-14.2); RDW Standard Deviation 51.6 fL (35.1-46.3); Red Blood Cell Count 4.21 M/mm3 (3.80-5.20); White Blood Cell Count 15.03 K/mm3 (4.00-11.30)
[2018-03-11 04:02] LABS: Albumin, Blood 2.7 g/dL (3.4-5.0); Anion Gap 8 mmol/L (6-16); Blood Urea Nitrogen 12 mg/dL (8-24); Bun/Creatinine Ratio 26.9 (12.0-20.0); CO2, Blood 29 mmol/L (21-32); Calcium, Blood 8.4 mg/dL (8.5-10.1); Chloride, Blood 95 mmol/L (98-108); Creatinine, Blood 0.45 mg/dL (0.40-1.00); Glomerular Filtration Rate >60 (60-); Glucose, Blood 147 mg/dL (70-99); Phosphorus, Blood 4.1 mg/dL (2.5-4.9); Potassium, Blood 4.2 mmol/L (3.5-5.5); Sodium, Blood 132 mmol/L (136-145)
--- NOTE | 2018-03-11 06:32 | NUR ---
PT HAS BEEN ABLE TO REST SOME THIS NIGHT. HAS BEEN ABLE TO MAKE HER NEEDS KNOWN. USES HER CALL LIGHT APPROPRIATELY. REQUESTS FOR SMALL ADJUSTMENTS TO HER AIRVO, OR BIPAP. USES ROXYCONDE FOR AIR HUNGER WHICH SHE STATES HELPS. HAS NO COMPLAINTS OF CHEST PAIN OR PRESSURE. SUBCUTANEOUS EMPHYSEMA UNCHANGED. WILL CONTINUE TO MONITOR PT, AND WILL REPORT OFF TO ONCOMING RN.
--- NOTE | 2018-03-11 08:35 | NUR ---
Recieved report from Fermin Youssef. Patient sitting up in bed awake and oriented and was able to communicate her needs and she was very friendly when entering the room. She is on AirVo at 40L and 65% and requests to be paced on bed sanchez. I placed on BIPAP 12/5 at 70% for pre movement and then placed on bed sanchez. She had about 400ml of light fatoumata urine. She stayed on BIPAP for about 10minutes and placed back on AirVo and increased to 80% and within another 10 minutes she wanted to be decreased to the normal 65% and sats 94% . She has 20ga IV LFA dressing intact and site WNL's and was flushed and SL. She tolerated meds and breakfast and is worried about constipation, as she only had small one tonite. She denied any pain this am but is asking for one with am medsd and states she breaths better with it not really painful.
--- NOTE | 2018-03-11 11:40 | NUR ---
Patient awake in bed and just placed back on AirVo 40L 80% and will reduce as she gets comfortable from BIPAP that she was on for her bed bath. She denies any pain and is sitting up in bed doing her hair.
--- NOTE | 2018-03-11 13:30 | NUR ---
Dr Ignacio and Paliative care and I went in room with family and Dr ignacio explaned lung biopsy results. Patien and family devistated and Dr Garza answered there questions and he is giving them time to absorb. Family has not had any new questions. Family is around bed comforting patient. During this time she was desating and increased to 90% at 40L. Medicated her for deepali as reqested.
--- NOTE | 2018-03-11 14:53 | NUR ---
Palliative care visit and note: 1400 Conferenced w/pt's RN & DR Ignacio, review of EMR and events since yesterday prior to pt/family meeting led by Dr Ignacio. 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 Pt informed that this removes her from eligibility to pursue a lung transplant for her end stage, terminal pulmonary fibrosis. Mone asked if cancer could be treated or if there was anyone, anywhere who would proceed with transplant. Dr Ignacio gave thorough and detailed explanantion of grim prognosis with small cell lung CA of 3 months even if pt did not already have end stage PF. Pt and family tearful and grieving appropriately. Pt expresses being in shock and unable to process. Support offered. Dr Ignacio answered pt's question of how long do I have to live with prognosis of 3-6 weeks. Pt and daughter asking "what now". I expressed our plan to prevent suffering and keep her comfortable. also reassured pt that we would continue to care for her and manage her s/s. I stayed with family for a short while, held daughter for a bit. She has been pt's constant philatelic consultant and caregiver through all the testing, illnesses, pulmonary rehab for years. She is distraught and unsure if she can work tonight. I encouraged her to call in and request the day off. She talked about needing to let other family members know. I encouraged her to take some time to recover and care for herself before doing that. Listened to and validated pt and daughter's expressed anger and disbelief that pt had cancer now. Pt's son also tearful but nonverbal. SONJA nonverbal and did not appear to be able to support his in this setting. I asked pt if she would like me to go and leave them to talk and she said yes, but requested that I come back later. She requested pain medication from RN who was bringing that in for her. Orders noted for Roxanol for air hunger/anxiety. Pt continues to require airvo/high flow O2 and bipap that cannot be provided at home. Spoke to Dr Ignacio about plan to discuss EOL care and Hospice or comfort care with pt tomorrow but not today. I do not know if it is important to pt to be in her own home for EOL care. She lives with her mone, sonja & their young toddler, Tao, who is the light of her life. Plan to return to support pt/family later today. [employer] Manager was updated earlier today on the results of the biopsy and consequences of this new dx.
--- NOTE | 2018-03-11 15:30 | NUR ---
Patient has had family around her talking about Hx. Have decreased to to 70% at 40L and her sats 95%. She has been tolerating well and is drinking Pepsi during breaks.VSS
--- NOTE | 2018-03-11 17:15 | NUR ---
ASSUMING CARE OF PT AT THIS TIME. PT REPORT RECEIVED AT BEDSIDE WITH OFFGOING NURSE, KALEB JENSEN. PT LAYING IN BED, TALKING WITH FAMILY MEMBERS, AND WATCHING TELEVISION UPON ENTERING THE ROOM. VS STABLE - SEE VS FS. PT DOES NOT APPEAR TO BE IN DISTRESS AT THIS TIME. WILL REVIEW PLAN OF CARE.
--- NOTE | 2018-03-11 17:30 | NUR ---
ASSESSMENT PT CALM, QUIET, COOPERATIVE, TALKING WITH STAFF AND FAMILY MEMBERS, SMILING, LAUGHING, A&O X4, RESPONDS TO VERBAL STIMULI, SPONT OPENS EYES, TALKS AND ANSWERS QUESTIONS APPROPRIATELY. SENSATION INTACT. DENIES N/T. NORMAL STRENGTH BUE'S. PT C/O SLIGHT WEAKNESS BLE'S. PT TURNS SELF IN BED. PT DENIES PAIN/DISCOMFORT AT THIS TIME. LUNGS COARSE, DIMINIHSED LOWER LOBES. AIRVO 40L, FIO2 95%. PT REQUIRES INCREASED FIO2 WITH ACTIVITY D/T DYSPNEA WITH EXERTION. PT ALSO REQUIRES BIPAP 10/5, FIO2 70% FOR PT ACTIVITY. OXY SAT >90% WHILE ON ARIVO 40L, FIO2 95%. RR 30'S. OCC NONPRODUCTIVE COUGH. CREPITUS AROUND CLAVICLES, RIGHT RIBES, NECK. AFEBRILE. ST. HR 100'S. BP STABLE - SEE VS FS. STRONG PULSES. WARM, PALE SKIN. HYPOACTIVE BT X4 QUADRANTS. ABD MILD DIST, SOFT, NONTENDER. NO N/V. NO BM AT THIS TIME. PT VOIDS IN BEDPAN. PT TOLERATING PO FLUIDS AND BITE SIZE DIET. PT REQUIRES ASSISTS TO VOID. PIV X1 - SL.
--- NOTE | 2018-03-11 19:58 | NUR ---
Follow up visit made to pt in ICU #8. Noc shift RN in room with pt but pt's family has gone home. Pt appears calm and to be breathing much easier than earlier today. She reports that the Roxanol that was started has helped with that alot. Pt says a couple times, "I'm ok". She is appropriately tearful as we continue the conversation about the very bad news she received today. We discussed getting her grandson, Tao, in for a visit. This was also discussed with the predatory hunter and pt's RN. Pt states she is hoping to get some sleep now so we did not work on this tonight. Will ask Palliative Care staff to talk to ICU staff tomorrow. Tao is a toddler and advanced notice and planning would be necessary. We will need to begin the conversation re: code status and pt's final wishes for her life in the next couple of days.
[2018-03-12 03:38] LABS: BASOPHILS ABSOLUTE AUTO 0.03 K/mm3 (0.00-0.23); BASOPHILS PERCENT AUTO 0 % (0-2); EOSINOPHILS ABSOLUTE AUTO 0.02 K/mm3 (0.00-0.68); EOSINOPHILS PERCENT AUTO 0 % (0-6); Hematocrit 40.2 % (33.0-51.0); Hemoglobin 12.4 g/dL (11.5-16.0); IMMATURE GRAN ABSOLUTE AUTO 0.26 K/mm3 (0.00-0.10); IMMATURE GRAN PERCENT AUTO 2 % (0-1); LYMPHOCYTES ABSOLUTE AUTO 1.01 K/mm3 (0.84-5.20); LYMPHOCYTES PERCENT AUTO 8 % (21-46); MONOCYTES ABSOLUTE AUTO 0.68 K/mm3 (0.16-1.47); MONOCYTES PERCENT AUTO 5 % (4-13); Mean Corpuscular HGB 29.3 pg (26.0-34.0); Mean Corpuscular HGB Conc 30.8 g/dL (31.5-36.5); Mean Platelet Volume 9.4 fL (9.1-12.4); NEUTROPHILS ABSOLUTE AUTO 11.43 K/mm3 (1.96-9.15); NEUTROPHILS PERCENT AUTO 85 % (41-73); Platelet Count 356 K/mm3 (150-400); RDW Coefficient Variation 15.3 % (11.7-14.2); RDW Standard Deviation 53.5 fL (35.1-46.3); Red Blood Cell Count 4.23 M/mm3 (3.80-5.20); White Blood Cell Count 13.43 K/mm3 (4.00-11.30)
[2018-03-12 03:40] LABS: Mean Corpuscular Volume 95 fL (80-100)
[2018-03-12 03:55] LABS: Albumin, Blood 2.8 g/dL (3.4-5.0); Anion Gap 8 mmol/L (6-16); Blood Urea Nitrogen 14 mg/dL (8-24); Bun/Creatinine Ratio 27.4 (12.0-20.0); CO2, Blood 31 mmol/L (21-32); Calcium, Blood 8.5 mg/dL (8.5-10.1); Chloride, Blood 99 mmol/L (98-108); Creatinine, Blood 0.51 mg/dL (0.40-1.00); Glomerular Filtration Rate >60 (60-); Glucose, Blood 135 mg/dL (70-99); Phosphorus, Blood 4.4 mg/dL (2.5-4.9); Potassium, Blood 4.1 mmol/L (3.5-5.5); Sodium, Blood 138 mmol/L (136-145)
--- NOTE | 2018-03-12 05:11 | NUR ---
SHIFT ASSESSMENT NO ACUTE CHANGES NOTED T/O SHIFT. PT CALM, QUIET, COOPERATIVE, OCC SMILING AND LAUGHING, OCC CRYING ABOUT NEW CA DIAGNOSIS, A&O X4, RESPONDS TO VERBAL STIMULI, SPONT OPENS EYES, TALKS AND ANSWERS QUESTIONS APPROPRIATELY. SENSATION INTACT. DENIES N/T. NORMAL STRENGTH BUE'S. PT C/O SLIGHT WEAKNESS BLE'S. PT TURNS SELF IN BED. PT DENIED PAIN/DISCOMFORT T/O SHIFT. LUNGS COARSE, DIMINISHED LOWER LOBES. CURRENTLY AIRVO 35L, FIO2 75%. PT REQUIRES INCREASED FIO2 WITH ACTIVITY D/T DYSPENA WITH EXERTION. PT ALSO REQUIRED BIPAP 10/5, FIO2 70% WITH PT ACTIVITY D/T DYSPENA WITH EXERTION. CONTINUED TO TITRATE FIO2 TO MAINTAIN SPO2 90% AND GREATER. RR 20'S TO 40'S. OCC PRODUCTIVE COUGH - SMALL, THICK, YELLOW. CREPITUS AROUND CLAVICLES, RIGHT RIBS, NECK. PT REQUIRED PAIN MEDICATIONS FOR AIR HUNGER AND INCREASING RR. PT STATES PAIN MEDICATIONS HELP WITH AIR HUNGER. AFEBRILE. SR TO ST. HR 90'S TO 120'S. BP STABLE - SEE VS FS. STRONG PULSES. WARM, PALE SKIN. ACTIVE BT X4 QUADRANTS. ABD MILD DIST, SOFT, NONTNEDER. NO N/V. NO BM T/O SHIFT. PT VOIDS IN BEDPAN. PT REQUIRES ASSISTANCE TO VOID IN BEDPAN. PT TOLERATING PO FLUIDS AND BITE SIZE DIET. PIV X2 - SL. WILL CONT TO MONITOR PT NAD WILL PROVIDE BEDSIDE REPORT TO ONCOMING NURSE THIS AM.
--- NOTE | 2018-03-12 06:33 | NUR ---
DR. NIEVES PICKETT IN ROOM AT THIS TIME. NO NEW ORDERS AT THIS TIME.
--- NOTE | 2018-03-12 08:33 | NUR ---
Recieved report from Shanell JENSEN. patient sitting up in bed alert and oriented and in a cheerful mood. She is wearing AirVo 40L at 70% and sast 95% She uses bedpan to urinate and is currently up on bedside cammode with BIPAP in place 11/14 80% and sats low 90%. She tolerated breakfast well, she denies any current pain. Family has not been in yet, was tough day yesterday.
--- NOTE | 2018-03-12 10:30 | NUR ---
Patient has been resting, Dr Leal in seeng patient and is discussing plan. She will have hospice consult and call and talked with Jai RN. She is very tearful. They will meet with family tomorrow and discuss future plans. She has been doing well and increased O2 to 40L 95% as she was worked up over conversation with Dr.. SALINAS
--- NOTE | 2018-03-12 12:30 | NUR ---
Family has arrived and is at bedside and she has been resting. Reduced AirVo to 35L at 95% and sats 96%. No other changes with patient.
--- NOTE | 2018-03-12 14:42 | NUR ---
Glory JENSEN came by to get information for tomorrows meeting. More famil has arrived and at bedside and no changes to AirVo and sasts continue at 35L 95% and sast mid to low 90%'s depending on how much she talks. VSS.
--- NOTE | 2018-03-12 18:17 | NUR ---
Patient has been rersting in room and is currently 35L at 71% and tolerating well while resting with sats low to mid 90%'s. She tolerated dinner well.
--- NOTE | 2018-03-12 18:19 | NUR ---
Kristen nair pt needs with nursing and [facility]green case manger and UM. pt fearful of change and leaving having difficulty discussing plan of care and polst. Met very briefly with pt to schedule tiem to talk. advised her it will be on her time and choice. She wants her mother and sister present. will attempt a plan of care. MIKEY zarco reviewd with charge nurisng best way to move pt and risks de to her oxygen demands. Will attemtp some theraputic time with pt for diversion and repite from her stress and gief. Need to find the right person for her to interact with. will attemtpt to teach a family memeber on strategies of reducing stress and diversion from fear and concentrating on breathing.
--- NOTE | 2018-03-12 19:15 | NUR ---
ASSUMING CARE OF PT AT THIS TIME. PT REPORT RECEIVED AT BEDSIDE WITH OFFGOING NURSE, KALEB JENSEN. PT LAYING IN BED, WATCHING TELEVISION, AND TALKING WITH FAMILY AT BEDSIDE. VS STABLE - SEE VS FS. PT DOES NOT APPEAR TO BE IN DISTRESS AT THIS TIME. WILL REVIEW PLAN OF CARE.
--- NOTE | 2018-03-12 19:30 | NUR ---
ASSESSMENT PT CALM, QUIET, COOPERATIVE, MORE ANXIETY NOTED THIS PM, TALKING WITH STAFF AND FAMILY MEMBERS, OCC SMILING, OCC CRYING, A&O X4, RESPONDS TO VERBAL STIMULI, SPONT OPENS EYES, TALKS AND ANSWERS QUESTIOSN APPROPRIATELY. SENSATION INTACT. DENIES N/T. NORMAL STRENGTH BUE'S. PT C/O SLIGHT WEAKNESS BLE'S. PT TURNS SELF IN BED. PT DENIES PAIN/DISCOMOFRT AT THIS TIME. LUNGS COARSE, DIMINISHED LOWER LOBES. AIRVO 35L, FIO2 78%. PT REQUIRES INCREASED FIO2 WITH ACTIVITY D/T DYSPNEA WITH EXERTION. PT ALSO REQUIRES BIPAP 10/5, FIO2 80% WITH PT ACTIVITY. WILL CONT TO TITRATE FIO2 TO MAINTAIN SPO2 90% AND GREATER. CURRENTLY, OXY SAT 90% AND GREATER WHILE ON AIRVO 35L, FIO2 78%. RR 20'S. OCC PRODUCTIVE COUGH - SMALL AMOUNTS OF THICK YELLOW SECRETIONS. CREPITUS AROUND CLAVICLES, RIGHT RIBS, NECK. AFEBRILE. NSR. HR 90'S. BP STABLE - SEE VS FS. STRONG PULSES. WARM, PALE SKIN. CONT TO ADMINSITER PAIN MEDICATIONS FOR AIR HUNGER. PT STATES PAIN MEDICATIONS HELP WITH AIR HUNGER. ACTIVE BT X4 QUADRANTS. ABD MILD DIST, SOFT, NONTENDER. NO N/V. NO BM AT THIS TIME. BOWEL PROTOCOL. PT VOIDS IN BEDPAN OR 1P SBA TO BEDSIDE COMMODE. PT TOLERATING PO FLUIDS AND BITE SIZE DIET. PIV X1 - SL.
[2018-03-13 03:59] LABS: BASOPHILS ABSOLUTE AUTO 0.03 K/mm3 (0.00-0.23); BASOPHILS PERCENT AUTO 0 % (0-2); EOSINOPHILS ABSOLUTE AUTO 0.01 K/mm3 (0.00-0.68); EOSINOPHILS PERCENT AUTO 0 % (0-6); Hematocrit 39.1 % (33.0-51.0); Hemoglobin 12.2 g/dL (11.5-16.0); IMMATURE GRAN ABSOLUTE AUTO 0.23 K/mm3 (0.00-0.10); IMMATURE GRAN PERCENT AUTO 2 % (0-1); LYMPHOCYTES ABSOLUTE AUTO 0.78 K/mm3 (0.84-5.20); LYMPHOCYTES PERCENT AUTO 6 % (21-46); MONOCYTES ABSOLUTE AUTO 0.36 K/mm3 (0.16-1.47); MONOCYTES PERCENT AUTO 3 % (4-13); Mean Corpuscular HGB 29.3 pg (26.0-34.0); Mean Corpuscular HGB Conc 31.2 g/dL (31.5-36.5); Mean Corpuscular Volume 94 fL (80-100); Mean Platelet Volume 9.9 fL (9.1-12.4); NEUTROPHILS ABSOLUTE AUTO 12.21 K/mm3 (1.96-9.15); NEUTROPHILS PERCENT AUTO 90 % (41-73); Platelet Count 336 K/mm3 (150-400); RDW Coefficient Variation 15.3 % (11.7-14.2); RDW Standard Deviation 52.9 fL (35.1-46.3); Red Blood Cell Count 4.16 M/mm3 (3.80-5.20); White Blood Cell Count 13.62 K/mm3 (4.00-11.30)
--- NOTE | 2018-03-13 04:52 | NUR ---
SHIFT ASSESSMEN NO ACUTE CHANGES NOTED T/O SHIFT. PT CALM, QUIET, COOPERATIVE, OCC ANXIETY, OCC SMILING, OCC CRYING AND "SAD" ABOUT RECENT DIAGNOSES OF CA, A&O X4, RESPONDS TO VERBAL STIMULI, SPONT OPENS EYES, TALKS AND ANSWERS QUESTIONS APPROPRIATELY. SENSATION INTACT. DENIES N/T. NORMAL STRENGTH BUE'S. SLIGHT WEAKNESS BLE'S. PT TURNS SELF IN BED. 1P SBA WITH AMBULATION TO BEDSIDE COMMODE. PT DENIED PAIN/DISCOMFORT T/O SHIFT. LUNGS COARSE, DIMINISHED LOWER LOBES. AIRVO 40L, FIO2 75%. PT REQUIRES INCRASED FIO2 WITH ACTIVITY D/T DYSPNEA WITH EXERTION. PT ALSO REQUIRES BIPAP 10/5, FIO2 80% WITH PT ACTIVITY. CONT TO TITRATE FIO2 TO MAINTAIN SPO2 90% AND GREATER. CURRENTLY, OXY SAT 90% AND GREATER WHILE ON AIRVO 40L, FIO2 75%. RR 20'S TO 40'S T/O SHIFT. OCC PRODUCTIVE COUGH - SMALL AMOUNTS OF THICK YELLOW SECRETIONS. CREPITUS AROUND CLAVICLES, RIGHT RIBS, NECK. AFEBRILE. NSR TO ST. HR 90'S TO 110'S. BP STABLE - SEE VS FS. STRONG PULSES. WARM, PALE SKIN. CONT TO ADMINISTER PAIN MEDICATIONS FOR AIR HUNGER. PT STATES PAIN MEDICATIONS HELP WITH AIR HUNGER. ACTIVE BT X4 QUADRANTS. ABD MILD DIST, SOFT, NONTENDER. NO N/V. NO BM T/O SHIFT. BOWEL PROTOCOL. PT VOIDS IN BEDPAN OR 1P SBA TO BEDSIDE COMMODE. PT TOELRATING PO FLUIDS AND BITE SIZE DIET. PIV X1 - SL. WILL CONT TO MONITOR PT AND WILL PROVIDE BEDSIDE REPORT TO ONCOMING NURSE THIS AM.
--- NOTE | 2018-03-13 06:09 | NUR ---
PT CARE PT TRANSFERRED FROM BED TO BEDSIDE COMMODE WHILE ON BIPAP 10/5, FIO2 80%. CONT TO TITRATE FIO2 TO 100% TO MAINTAIN SPO2 90% AND GREATER. RR 40'S. PT REMAINS ON BIPAP 10/5, FIO2 100% AFTER TRANSFERRING PT FROM BEDSIDE COMMODE TO BED. SPO2 REMAINS 90% AND GREATER, RR 30'S TO 40. PT REQUIRING INCREASING FIO2 WHILE ON BIPAP T/O SHIFT TO MAINTAIN SPO2 90% AND GREATER. PT REQUIRING INCREASED FLOW ON AIRVO FROM 35L TO 40L AND INCREASED OXYGEN TO MAINTAIN SPO2 90% AND GREATER. WILL CONT TO TITRATE OXYGEN TO MAINTAIN SPO2.
--- NOTE | 2018-03-13 07:30 | NUR ---
ASSUMED CARE: PT SITTING UPRIGHT IN BED ON AIRVO AT 40L AND 85% FIO2. VSS BUT TAKES SEVERAL MINUTES TO RECOVER O2 SAT AFTER ANY EXERTION OR ACTIVITY. NO FURTHER NEEDS OR CONCERNS AT THIS TIME
--- NOTE | 2018-03-13 09:21 | NUR ---
PT REQUESTING TO WAIT ON MEDS DUE TO NEEDING BIPAP AT THIS TIME
--- NOTE | 2018-03-13 11:22 | NUR ---
SPOKE WITH ROHAN IN PALLIATIVE CARE TO COME UP WITH A PLAN FOR PT FOR THE DAY. PLANNING ON DISCUSSING CASE WITH DR NAVARRO WELL. PALLIATIVE CARE NOTIFIED NOW THAT DAUGHTER AND MOTHER IN ROOM TO DISCUSS PLANS FURTHER
--- NOTE | 2018-03-13 12:15 | NUR ---
ROHAN RN HAD A DISCUSSION WITH PT AND FAMILY ABOUT FUTURE PLANS REGARDING HOSPITAL STAY AND HOSPICE. PLAN RELAYED TO DR LOGAN. ROHAN ALSO SPEAKING WITH EMILIE SANDOVAL ABOUT FURTHER CONVERSATIONS WITH PT TO HELP HER COPE WITH ILLNESS AND PROGNOSIS. FAMILY REMAINS AT BEDSIDE
--- NOTE | 2018-03-13 14:22 | NUR ---
Met with patient and family regarding plan of care. Review of care needs and discussion with physicians and staff of plan of care to keep pt in ICU/PCu due to respiritory needs. Will review PRN meds with director of science for comfort. Pt mother and family at bedside. Facilitated them to lead conversation. The patient and her mother had questions on finances and life plan. Went through the 8 domaines of a palliative assessment with pt and family. Fortunately it opened a barrier and they did most of the talking. Pt needs help with [facility] provided information on how to access. We reviewed POA for health and financial/ we reviewed meng and banking and asisted with [facility] for possible liens on her property. Pt wants to donate her body and asked for assistnce put a call into [employer] for information. will meet with pt alone to see if she wants to write letters or suggest funneral plan as may be theraputic for patient. Pt able to express great anger over getting cancer after all the work she did to gt on list. Family stuggled with her expressions and wanted her to stop. She opened up a lot of anger, pushed pt to express her fears and hurts and affirmed her statements. Met with Chaplian Jaylan after to review spiritual needs and how music robel benefit pt. Suggested some viualizations and gave family some ideas on how to divert her attention. She was worried about letting family and children coming into the hospital, Will facilitate her needs and family visits. review of care with Dr. Sharma and the DNR conversation. Will return to review her wishes for food, musci activites and adjunctive non pharmacolgical care we can offer.
--- NOTE | 2018-03-13 17:55 | NUR ---
SHIFT SUMMARY: PT SITTING UPRIGHT IN BED ON AIRVO AT 40L AT 92% FIO2. PT DIRECTS STAFF IN TITRATION OF BIPAP AND AIRVO NEEDED FOR O2 >88%. DISCUSSIONS WITH PALLIATIVE CARE AND MDS ABOUT PLAN. PT IS NOW PCU STATUS, AWAITING ROOM AVAILABILITY. FAMILY AT BEDSIDE T/O SHIFT. NO FURTHER NEEDS OR CONCERNS AT THIS TIME.
--- NOTE | 2018-03-13 19:10 | NUR ---
ASSUMED CARE OF PT, BEDSIDE REPORT RECEIVED, PT RESTING QUIETLY RECLINING IN BED AT THIS TIME SPEAKING IN SHORT SENTANCES HOWEVER STATES THAT HER BREATHING FEELS "GOOD" AT THIS TIME, AIRRVO NOTED AT 40 L/MIN AND FIO2 95%, PT SATS LOW 90S BUT DECREASES TO MID TO HIGH 80S WITH SPEECH, LUNGS WITH CRACKLES THROUGHOUT, DYSPNEA IS NOTED WITH ANY INCREASE IN ACTIVITY, CREPITUS IS NOTED TO UPPER ANTERIOR CHEST WALL BILAT. HRR, SINUS TACH ON MONITOR, BP MAINTAINING STABLE, PULSES FULL X 4 EXTREMITIES. BOWEL TONES ACTIVE X 4, ABD SOFT, NO GRIMACING OR GAURDING WITH LIGHT PALPATION. 20 GAUGE IV ACCESS NOTED SALINE LOCKED TO LEFT WRIST/FOREARM. PT DENIES CP/PRESSURE, DENIES PAIN, DENIES NUMBNESS/TINGLING, DENIES NEEDS AT THIS TIME.
--- NOTE | 2018-03-14 05:27 | NUR ---
SHIFT SUMMARY PT ALERT AND ORIENTED X 3 ON ARRIVAL FROM ICU. SHE MAINTAINED THIS THROUGHOUT SHIFT. SHE WAS PLEASANT AND COOPERATIVE WITH VITALS AND ASSESSMENTS. PT DID NOT SLEEP DURING THE NIGHT AND DID HAVE SOME PERIODS OF ANXIETY. PT ANXIETY WAS RELATED TO BREATHING AND OXYGENATION ISSUES WHEN SHE ROLLED TO USE THE BEDPAN. PT WAS PROVIDED ORDERED MEDICATION, REPOSITIONED, AND HER O2 WAS TURNED UP. PT SATURATION IMPROVED WITH THIS, SHE RELAXED VISIBLY AND SHE IS CURRENTLY RESTING COMFORTABLY. PT OTHER VIATLS REMAINED STABLE AND SHE CONTINUED TO COMMUNICATE WITH STAFF EFFECTIVELY. PT USED HER CALL LIGHT APPROPRIATELY AND IT WAS LEFT WITHIN REACH. PT DENIED ANY UNMET NEEDS. SHE CONTINUED TO BE PLEASANT T/O THE SHIFT. SHE WILL CONTINUE TO BE MONITORED UNTIL HANDOFF TO DAYSHIFT RN.
--- NOTE | 2018-03-14 08:10 | NUR ---
Assumed Care: Assumed care of pt at approx 0700. VSS. In no apparent sign of distress. Pt is A&Ox4. Calls appropriately and repositions self, and asks for assistance with ADLs PRN. Denies any pain at this time. On Airvo. See shift assessment for detailed assessment. Delivered breakfast tray, but pt states that she would like to just rest for now. Currently resting in bed with call light within reach. Denies any further questions, complaints or requests at this time. Will continue to monitor and provide support to pt.
--- NOTE | 2018-03-14 19:23 | NUR ---
Shift Summary No acute changes since initial shift assessment. VSS. In no apparent sign of distress. Pt has remained A&O. Denies any pain t/o the shift, but c/o intermittent air hunger for which the pt has been treated per emar. This afternoon, pt was wearing Airvo 50L and 95% FiO2 and had O2 sat in the 70's. Offered BiPAP and pt refused. Discussed with pt that the pt may not tolerate SpO2 level in the 70's, and could suffer consequences in the near future. Pt continued to refuse BiPAP. Notified pt family and Dr. Fung regarding pt declining condition. Family returned to hospital and pt this later afternoon returned to wearing BiPAP and remaines on BiPAP at this time with 100% FiO2. No other changes this shift. Also updated Dr. Masters regarding pt condition. Pt refused to see palliative care this shift, but palliative care did visit with family today. Pt currently resting in bed with call light within reach. Denies any further questions, complaints or requests at this time. Report given to robbie JENSEN.
--- NOTE | 2018-03-15 06:38 | NUR ---
SHIFT SUMMARY PT ALERT AND ORIENTED X 3 THROUGHOUT SHIFT. SHE WAS PLEASANT AND COOPERATIVE WITH VITALS AND ASSESSMENTS. PT DID HAVE SOME ANXIETY AT TIMES DURING THE NIGHT. SHE WAS PROVIDED ORDERED MEDICATIONS AND THIS WAS OBSERVED TO HELP. PT VITALS WERE STABLE T/O SHFIT. SHE WAS ABLE TO MAKE NEEDS KNOWN, USED HER CALL LIGHT APPROPRIATELY AND IT WAS LEFT WITHIN EASY REACH. PT BED IN LOW POSITION, 2X SIDE RAILS IN PLACE AND BIPAP WAS WORN AND TOLERATED ALL NIGHT. PT WILL CONTINUE TO BE MONITORED UNTIL HANDOFF TO DAYSHIFT RN.
--- NOTE | 2018-03-15 08:00 | NUR ---
Update: Family denies VS to be taken at this time. Family would like to focus on making the pt comfortable only at this time. Will consult palliative care to discuss comfort care with family.
--- NOTE | 2018-03-15 15:26 | NUR ---
1411: Received a call from nursing that pt continues to be bipap dependent and continues to deteriorate. Pt's daughter is at bedside and nursing would like PC to come visit with pt/family. 1415: Rec'd a call from Balta at [facility] re: completing the registry for whole body dontation. [facility] needs a call back to complete the registry. 1452: Visited with Kayla, pt's daughter, for the past 30 minutes. She is tearful and fearful that her mother will from suffocation. Staff attempted to try airvo in place of bipap as pt is continuing to decline and is having periods of apnea. Kayla reports that once pt was off bipap and placed on airvo that she woke up, her sats dropped to the 60s and she appeared to be "suffocating." Staff placed pt back on bipap per Kayla's request and currently during my visit Anisa is sleeping. She is having periods of apnea and appears to be starting to mottle at her finger tips. Did not remove covers as pt startles easily. Anisa appears comfortable at this time. Kayla is tearful and states that she understands her mother is dying and will likely very soon. Explained that the signs that Kayla is seeing (mottling, confusion, lethargy, apnea) are all normal EOL signs. Kayla is agreeable to being comfort care at this time, however she would like to keep Anisa on the bipap for now. Explained to Kayla that we can use comfort medications liberally to help with symptom management so that Anisa can be kept comfortable when she passes. Kayla appeared to relax some knowing that staff will medicate Anisa as needed. Explained to Kayla that the bipap is very likely lengthening Anisa's life at this time. Kayla is aware that if she changes her mind and wants to remove the bipap that staff will pre-medicate her. Allowed Kayla to voice her fear and frustrations with her mother's anticipated passing. Updated nursing on conversation with Kayla and will contact Dr. Paris for comfort care orders. Pt already has orders for comfort care medications on her EMAR. 1455: Spoke with Dr. Paris. Updated her on attempt to change to airvo and pt/family response. Rec'd order for comfort care and that order was placed in the computer. 1520: Spoke with [facility] customer engagement representative. [facility] states that when pt passes away that staff need to contact [facility]. Family, Kayla or Bertha (pt's mom) will need to contact [facility] for a preliminary screening and sign consent forms that will be faxed to the PC office. The consent forms have been faxed and will be placed on pt's chart along with number to contact [facility] when pt passes away.
--- NOTE | 2018-03-15 18:12 | NUR ---
Received a call from pt's mom, Bertha Grigsby, at 1535 this afternoon. Bertha reports that she contacted [facility] and that she has completed the pre-screening interview. Bertha reports that [facility] needs a copy of any AD or POLST form faxed to them at [phone]. Only POLST on file was from 01/27 which is for full code. Pt's daughter Kayla, signed new POLST this afternoon for DNR, comfort measures. LM for Dr. Paris to sign updated POLST form. Once has signed POLST form, it can be faxed to [facility]. No AD is on file. [facility] updated on consent forms that need to be signed after pt passes away and that once pt passes, [facility] needs to be contacted. Anisa's daughter Kayla also aware there will be paperwork after she passes away that will need to be done. If Kayla is unable to sign the consent forms, Bertha, pt's mom will be able to sign them. Bertha can be contacted at [phone]. Multiple family members are currently at pt's bedside. She is on the airvo now and appears to be resting peacefully. Pt's family is appreciative of the care Anisa is receiving. Family given emotional support and voices no needs at this time. Pt is eminent and family educated on EOL signs. Staff will continue to support pt and family through this transition period.
--- NOTE | 2018-03-15 19:50 | NUR ---
Shift Summary Pt transitioned to comfort care this afternoon. Family provided with emotional support t/o the day. Family has been at bedside for most of day. Pt now on Airvo for comfort. Pt appears comfortable at this time and no s/sx of any unmet needs. Reprot given to robbie Foster called to discuss process for transporting pt for body donation once the patient has passed, which has been communicated to the robbie RN - packet in front of chart. New polst form reflecting comfort care and DNR status complete, faxed and placed on front of pt chart. Family denies any further needs at this time.
--- NOTE | 2018-03-15 20:00 | NUR ---
ASSUMED CARE- PT CURRENTLY BEING CARED FOR UNDER COMFORT CARE ORDERS. FAMILY IS AT BEDSIDE AND INVOLVED WITH CARE. PT CURRENTLY SLEEPING AND DOES NOT RESPOND TO VERBAL STIMULI, BUT DID OPEN HER EYES WHEN BEING TURNED IN BED. AIRVO CURRENTLY IN PLACE FOR COMFORT ON 50L AND 96% FIO2. PT APPEARS TO BE RESTING COMFORTABLY IN BED AT THIS TIME. FAMILY INFORMED TO CALL FOR ANY NEEDS THAT THEY FEEL ARE APPROPRIATE FOR PATIENT CARE- THEY VERBALIZE UNDERSTANDING. RODDING MACHINE TENDER REMOVED WITH FAMILY PERMISSION. WILL CONTINUE TO MONITOR AND ASSESS FOR PATIENT COMFORT. BED IN LOW POSITION, CALL LIGHT IN REACH OF FAMILY AND PATIENT.
--- NOTE | 2018-03-16 03:00 | NUR ---
PATIENT PASSED PT HAS AT APPROXIMATELY 0217. [facility] ANSWERING SERVICE AND HOSPITALIST INFORMED OF PATIENT PASSING. FAMILY AT BEDSIDE UPON EXPIRATION. ALL LINES, CORDS, AND AIRVO REMOVED. [facility] CONTACTED FOR PREARRANGED BODY DONATION, SPOKE WITH [facility]. [facility] TO CONTACT HOME FOR PICKUP OF PATIENT. ICE PLACED TO EYES FOR POSSIBLE DONATION. FINAL DISCHARGE PREPARED BY SAMIR BENSON RN.
--- NOTE | 2018-03-16 13:40 | NUR ---
Eye donation has been completed. Call to [employer] coordinator for the pt's body to be picked up by the home.
--- NOTE | 2018-03-16 18:25 | NUR ---
TRANSPORT ARRIVED AND PT WAS TAKEN FROM HOSPITAL FOR FINAL DISCHARGE
== END 2018-03-16 17:56 | DRG 180 ==
LOC: ER 12:42 → ICUE 14:31 → ICUW 14:31 → ER 15:37 → ICUW 15:37 → ICUE 02-27 15:15 → PCU 03-13 22:55
PROVIDERS: Emergency Medicine; Family Medicine; Internal Medicine Critical Care Medicine; Internal Medicine Endocrinology, Diabetes & Metabolism; Student in an Organized Health Care Education/Training Program; ADMIT Internal Medicine
PROC: 5A09357 Assistance with Respiratory Ventilation, Less than 24 Consecutive Hours, Continuous Positive Airway Pressure (ICD-10-PCS; principal; 2018-02-26)
PROC: 0BBF3ZX Excision of Right Lower Lung Lobe, Percutaneous Approach, Diagnostic (ICD-10-PCS; 2018-03-09)
DX: C34.31 Malignant neoplasm of lower lobe, right bronchus or lung (principal); J96.21 Acute and chronic respiratory failure with hypoxia; J95.811 Postprocedural pneumothorax; Z51.5 Encounter for palliative care; J84.112 Idiopathic pulmonary fibrosis; Z87.891 Personal history of nicotine dependence; R91.1 Solitary pulmonary nodule; R59.0 Localized enlarged lymph nodes; I27.20 Pulmonary hypertension, unspecified; Z99.81 Dependence on supplemental oxygen; D72.829 Elevated white blood cell count, unspecified; T38.0X5A Adverse effect of glucocorticoids and synthetic analogues, initial encounter; Y92.239 Unspecified place in hospital as the place of occurrence of the external cause; Z66 Do not resuscitate
CPT/HCPCS: 32405; 36415; 71045; 71260; 77012; 80048; 80053; 80069; 81003; 82803; 83735; 83880; 84100; 84145; 84484; 85025; 85027; 85610; 85730; 87070; 87205; 87486; 87581; 87633; 87798; 93005; 93010; 93306; 94640; 94660; 94762; 96360; 96361; 99285-25; J1644; J1650; J2060; J2270; J2920; J2930; J7030; J7120; J7517; Q9967

== ENCOUNTER 2018-03-09 12:00 | Day surgery (SDC) | payer OTHER | END 2018-03-09 13:00 | disposition home or self-care (01) | LOC: CT 12:00 | DX: C34.31 Malignant neoplasm of lower lobe, right bronchus or lung (principal); J84.10 Pulmonary fibrosis, unspecified | CPT/HCPCS: 88305; 88341; 88342 ==